=== PATIENT | female | born 1940 | race Caucasian/White ===

== ENCOUNTER → 2017-01-27 | Outpatient (CLI) | payer MEDICARE, BC ==
[2017-01-27 16:38] LABS: Anion Gap 11 mmol/L; Blood Urea Nitrogen 16 mg/dL (7-17); Carbon Dioxide 30 mmol/L (22-30); Chloride 102 mmol/L (98-107); Glucose 98 mg/dL (74-99); Non-African American GFR(MDRD) 53 (>60 ml/min/1.73 sqM); Potassium 4.1 mmol/L (3.5-5.1); Sodium 143 mmol/L (137-145)
== END | disposition home or self-care (01) ==
LOC: LABWHC1 16:11
PROVIDERS: ATTEND Internal Medicine Clinical Cardiac Electrophysiology
DX: I48.91 Unspecified atrial fibrillation (principal)
CPT/HCPCS: 36415; 80048; 84443

== ENCOUNTER 2017-03-03 07:59 | Day surgery (SDC) | payer MEDICARE, BC ==
[~2017-03-03 07:59] MED LIST: ALPRAZolam 0.25 MG TAB PO PRN; ASPIRIN 325 MG TAB PO ONE; SODIUM CHLORIDE 0.9% 1,000 ML in EMPTY BAG 1 BAG IV ONE
[2017-03-03 08:41] LABS: Basophils # (A) 0.1 k/uL (0-0.2); Basophils % (A) 2 %; CH 32.3; CHCM 34.8; Eosinophils # (A) 0.2 k/uL (0-0.7); Eosinophils % (A) 4 %; HDW 2.51; HGB 14.2 gm/dL (11.4-16.0); Luc # (Auto) 0.09; Luc % (Auto) 2; Lymphocytes # (A) 1.4 k/uL (1.0-4.8); Lymphocytes % (A) 27 %; MCH 31.5 pg (25.0-35.0); MCHC 33.8 g/dL (31.0-37.0); MCV 93.1 fL (80.0-100.0); Mean Platelet Volume 7.2; Monocytes # (A) 0.3 k/uL (0-1.0); Monocytes % (A) 6 %; Neutrophils # (A) 2.9 k/uL (1.3-7.7); Neutrophils % (A) 59 %; RBC 4.51 m/uL (3.80-5.40); RDW 13.5 % (11.5-15.5); WBC 4.9 k/uL (3.8-10.6); WBC (Perox) 4.79
[2017-03-03 08:44] VITALS: RESP 18
[2017-03-03 08:47] LABS: INR 1.1 (<1.1); Prothrombin Time 10.8 sec (9.0-12.0)
[2017-03-03 08:52] LABS: Anion Gap 10 mmol/L; Blood Urea Nitrogen 18 mg/dL (7-17); Calcium 9.6 mg/dL (8.4-10.2); Carbon Dioxide 26 mmol/L (22-30); Chloride 106 mmol/L (98-107); Glucose 118 mg/dL (74-99); Non-African American GFR(MDRD) 53 (>60 ml/min/1.73 sqM); Potassium 3.7 mmol/L (3.5-5.1); Sodium 142 mmol/L (137-145)
[2017-03-03] MEDS ORDERED: LIDOCAINE 2% INJ 20 MG/ML (20 ML MDV) ONE (08:54)
[2017-03-03] MEDS ORDERED: MIDAZOLAM 2 MG/2 ML VIAL ONE (09:01)
[2017-03-03] MEDS ORDERED: fentaNYL (PF) 50 MCG/ML 2 ML AMP ONE (09:02)
[2017-03-03] MEDS ORDERED: fentaNYL (PF) 50 MCG/ML 2 ML AMP IV ONE (09:05)
[2017-03-03] MEDS ORDERED: MIDAZOLAM 2 MG/2 ML VIAL IV ONE (09:05)
[2017-03-03] MEDS ORDERED: LIDOCAINE 2% INJ 20 MG/ML SQ ONE (09:08)
[2017-03-03] MEDS ORDERED: IOHEXOL 350 MG/ML 125ML BOTTLE INJ ONE (09:29)
[2017-03-03] MEDS ORDERED: RX INFO: IV CONTRAST WAS GIVEN 1 EACH MISC MISCELLANE PRN (09:51)
--- NOTE | 2017-03-03 09:57 | P.CRDCN ---
History of Present Illness Consult date: 03/03/17 History of present illness: HISTORY: This is a 76-year-old female with history of hypertension, paroxysmal atrial fibrillation and also carotid disease. Patient had a recent stress test that showed evidence of reversible ischemia in the lateral wall. He is advised to have a cardiac catheterization for definitive diagnosis. CONSENT:I have discussed the risks, benefits and alternative therapies for the above-mentioned procedure and for both sedation/analgesia as well as necessary blood product administration, if indicated, as they pertain to this patient. The patient has indicated understanding and acceptance of the risks and procedures discussed. PROCEDURE: Patient was brought to the lab in a fasting state. Patient was given some IV sedation. The right groin is infiltrated with lidocaine and right femoral artery was entered using Seldinger technique. A 6-Micronesian catheter was left in place and selective coronary arteriography was performed. Patient tolerated the procedure well. Femoral angiogram was performed and Angio-Seal was applied for hemostasis. No immediate complications were noted and patient was transferred to [facility] in a stable condition HEMODYNAMICS: Aortic pressure is about 170/80. Left ankle end-diastolic pressure is 10-15. There was no gradient across the aortic valve. SELECTIVE CORONARY ARTERIOGRAPHY: LEFT MAIN: Long and patent and with some calcification THE LEFT ANTERIOR DESCENDING CORONARY ARTERY: Calcification in the proximal portion with mild disease and 30-40% stenosis. The first diagonal also has mild disease. Rest of the LAD is free of significant focal lesions. Multiple mild intimal plaque is present THE LEFT CIRCUMFLEX AND IS CORONARY ARTERY: This is a good caliber vessel giving rise to 2 OM branches. The second OM branch is totally occluded. It fills slowly with ipsilateral collaterals. 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 Calcification and intimal plaque involving the proximal LAD and the diagonal with 30-40% luminal narrowing. No critical lesions are noted PLAN: Maximum medical therapy and to expect modification. PROGNOSIS: Fair Medications and Allergies Home Medications Medication Instructions Recorded Confirmed Type Aspirin [Adult Low Dose Aspirin EC] 81 mg PO DAILY 03/03/17 03/03/17 History Atorvastatin [Lipitor] 40 mg PO DAILY 03/03/17 03/03/17 History Cholecalciferol [Vitamin D3] 1,000 unit PO DAILY 03/03/17 03/03/17 History Hydrochlorothiazide 12.5 mg PO DAILY 03/03/17 03/03/17 History Levothyroxine Sodium [Synthroid] 88 mcg PO DAILY 03/03/17 03/03/17 History Losartan [Cozaar] 50 mg PO HS 03/03/17 03/03/17 History [place]-3 Fatty Acids/Fish Oil [Fish 1 each PO DAILY 03/03/17 03/03/17 History Oil 1,000 mg Softgel] Warfarin Sodium [Coumadin] 2.5 mg PO DAILY 03/03/17 03/03/17 History Allergies Allergy/AdvReac Type Severity Reaction Status Date / Time No Known Allergies Allergy Unverified 03/03/17 08:19 Physical Exam Vitals: Vital Signs Temp Pulse Pulse Resp BP BP Pulse Ox 03/03/17 09:45 97.8 F 53 L 18 169/76 96 03/03/17 08:41 97.6 F 68 18 178/81 199/83 97 Intake and Output 03/02/17 03/03/17 03/03/17 22:59 06:59 14:59 Intake Total 100 Balance 100 Intake: IV 100 Other: Weight 83.024 kg Results 03/03/17 08:30 03/03/17 08:30 Coagulation 03/03/17 Range/Units 08:30 PT 10.8 (9.0-12.0) sec CBC 03/03/17 Range/Units 08:30 WBC 4.9 (3.8-10.6) k/uL RBC 4.51 (3.80-5.40) m/uL Hgb 14.2 (11.4-16.0) gm/dL Hct 42.0 (34.0-46.0) % Plt Count 220 (150-450) k/uL Comprehensive Metabolic Panel 03/03/17 Range/Units 08:30 Sodium 142 (137-145) mmol/L Potassium 3.7 (3.5-5.1) mmol/L Chloride 106 (98-107) mmol/L Carbon Dioxide 26 (22-30) mmol/L BUN 18 H (7-17) mg/dL Creatinine 1.02 (0.52-1.04) mg/dL Glucose 118 H (74-99) mg/dL Calcium 9.6 (8.4-10.2) mg/dL Current Medications Generic Name Dose Route Start Last Admin Trade Name Freq PRN Reason Stop Dose Admin Alprazolam 0.25 mg 03/03/17 06:00 Xanax PO ONCE PRN Mild Anxiety Sodium Chloride 1,000 mls @ 75 mls/hr 03/03/17 10:00 Saline 0.9% IV .[id number] SAV Miscellaneous Information 1 each 03/03/17 09:51 Rx Info: Iv Contrast Was Given MISCELLANE 03/05/17 09:51 DAILY PRN Per Protocol Intake and Output 03/02/17 03/03/17 03/03/17 22:59 06:59 14:59 Intake Total 100 Balance 100 Intake: IV 100 Other: Weight 83.024 kg 03/03/17 08:30 03/03/17 08:30
[2017-03-03] MEDS ORDERED: SODIUM CHLORIDE 0.9% 1,000 ML IV SCH (10:00)
[2017-03-03 11:35] VITALS: TEMP 98
[2017-03-03] MEDS ORDERED: amLODIPine 5 MG TAB PO STA (13:28)
[2017-03-03 15:28] VITALS: BP 170/77; PULSE 52
--- NOTE | 2017-03-08 10:54 | CDI ---
Per your operative report the patient was given some IV sedation and Fentanyl and Versed are noted to be administered at 0905. Per new CMS ([employer] and [employer]) guidelines there is a change by which the work of moderate/conscious sedation will be reimbursed separately. Further clarification of your documentation of some IV sedation is needed for proper reporting purposes. Please clarify the type of sedation this patient received during the cardiac catheterization. Moderate/conscious sedation MAC (unconscious sedation) General Anesthesia Other (please specify) Please document your findings in an addendum to the Procedure Note. If you have any questions about this query, you may contact Telecine Operator, Lanny Vincent at between 8am and 6pm Wednesday-Wednesday Thank you for your time. STEPHANIE Conde
== END 2017-03-03 15:00 | disposition home or self-care (01) ==
LOC: CATHCVL 07:59
PROVIDERS: ATTEND Internal Medicine Cardiovascular Disease
DX: I25.10 Atherosclerotic heart disease of native coronary artery without angina pectoris (principal); I25.84 Coronary atherosclerosis due to calcified coronary lesion; I25.82 Chronic total occlusion of coronary artery; I10 Essential (primary) hypertension; I48.0 Paroxysmal atrial fibrillation; I49.5 Sick sinus syndrome; I47.1 Supraventricular tachycardia; Z79.899 Other long term (current) drug therapy; Z79.82 Long term (current) use of aspirin; Z79.01 Long term (current) use of anticoagulants; Z82.49 Family history of ischemic heart disease and other diseases of the circulatory system
CPT/HCPCS: 93458; 99152; 80048; 85025; 85610; C1760; C1894; C1769; J2001; J2250; J3010; Q9967

== ENCOUNTER 2018-03-15 22:53 | Observation (INO) | payer MEDICARE, BC ==
--- NOTE | 2018-03-15 23:16 | ED ---
General Adult HPI - General Chief complaint: Chest Pain Stated complaint: Chest pain Time Seen by Provider: 03/15/18 22:55 Source: patient, RN notes reviewed, old records reviewed Mode of arrival: wheelchair Limitations: no limitations - History of Present Illness Initial comments: This is a 77-year-old female ER for evaluation. Patient resents ER for evaluation chest pain. Patient does have history of chest pain heart disease. A she has history of high blood pressure high cholesterol - Related Data Home Medications Medication Instructions Recorded Confirmed Aspirin [Adult Low Dose Aspirin EC] 81 mg PO DAILY 03/03/17 03/15/18 Atorvastatin [Lipitor] 40 mg PO DAILY 03/03/17 03/15/18 Cholecalciferol [Vitamin D3] 1,000 unit PO DAILY 03/03/17 03/15/18 Hydrochlorothiazide 12.5 mg PO DAILY 03/03/17 03/15/18 Levothyroxine Sodium [Synthroid] 88 mcg PO DAILY 03/03/17 03/15/18 Losartan [Cozaar] 50 mg PO BID 03/03/17 03/15/18 [place]-3 Fatty Acids/Fish Oil [Fish 1 each PO DAILY 03/03/17 03/15/18 Oil 1,000 mg Softgel] Warfarin Sodium [Coumadin] 5 mg PO MOFR 03/03/17 03/15/18 Warfarin [Coumadin] 3.75 mg PO SUTUWETHSA 03/15/18 03/15/18 Allergies Allergy/AdvReac Type Severity Reaction Status Date / Time No Known Allergies Allergy Verified 03/15/18 23:12 Review of Systems ROS Statement: Those systems with pertinent positive or pertinent negative responses have been documented in the HPI. ROS Other: All systems not noted in ROS Statement are negative. Past Medical History Past Medical History: Hyperlipidemia, Hypertension, Thyroid Disorder History of Any Multi-Drug Resistant Organisms: None Reported Past Surgical History: Orthopedic Surgery Past Psychological History: No Psychological Hx Reported Smoking Status: Never smoker Past Alcohol Use History: None Reported Past Drug Use History: None Reported General Exam Limitations: no limitations General appearance: alert, in no apparent distress Head exam: Present: atraumatic, normocephalic, normal inspection Eye exam: Present: normal appearance, PERRL, EOMI. Absent: scleral icterus, conjunctival injection, periorbital swelling ENT exam: Present: normal exam, mucous membranes moist Neck exam: Present: normal inspection. Absent: tenderness, meningismus, lymphadenopathy Respiratory exam: Present: normal lung sounds bilaterally. Absent: respiratory distress, wheezes, rales, rhonchi, stridor Cardiovascular Exam: Present: regular rate, normal rhythm, normal heart sounds. Absent: systolic murmur, diastolic murmur, rubs, gallop, clicks GI/Abdominal exam: Present: soft, normal bowel sounds. Absent: distended, tenderness, guarding, rebound, rigid Extremities exam: Present: normal inspection, full ROM, normal capillary refill. Absent: tenderness, pedal edema, joint swelling, calf tenderness Back exam: Present: normal inspection Neurological exam: Present: alert, oriented X3, CN II-XII intact Psychiatric exam: Present: normal affect, normal mood Skin exam: Present: warm, dry, intact, normal color. Absent: rash Course Vital Signs 03/15/18 03/15/18 22:55 23:43 Temperature 97.4 F L Pulse Rate 79 74 Respiratory 18 18 Rate Blood Pressure 202/88 165/72 O2 Sat by Pulse 98 98 Oximetry EKG Findings - EKG Comments: EKG Findings:: EKG shows normal sinus rhythm rate of 70, CA 1:30, QRS 76, QTc 697 Medical Decision Making - Lab Data Result diagrams: 03/15/18 23:20 03/15/18 23:20 Lab Results 03/15/18 03/15/18 03/15/18 Range/Units 23:20 23:20 23:20 WBC 7.7 (3.8-10.6) k/uL RBC 4.60 (3.80-5.40) m/uL Hgb 14.1 (11.4-16.0) gm/dL Hct 41.9 (34.0-46.0) % MCV 91.1 (80.0-100.0) fL MCH 30.6 (25.0-35.0) pg MCHC 33.6 (31.0-37.0) g/dL RDW 13.3 (11.5-15.5) % Plt Count 270 (150-450) k/uL Neutrophils % 59 % Lymphocytes % 29 % Monocytes % 7 % Eosinophils % 3 % Basophils % 1 % Neutrophils # 4.5 (1.3-7.7) k/uL Lymphocytes # 2.2 (1.0-4.8) k/uL Monocytes # 0.5 (0-1.0) k/uL Eosinophils # 0.3 (0-0.7) k/uL Basophils # 0.0 (0-0.2) k/uL PT (9.0-12.0) sec INR (<1.2) APTT (22.0-30.0) sec Sodium 143 (137-145) mmol/L Potassium 4.0 (3.5-5.1) mmol/L Chloride 103 (98-107) mmol/L Carbon Dioxide 26 (22-30) mmol/L Anion Gap 14 mmol/L BUN 19 H (7-17) mg/dL Creatinine 1.00 (0.52-1.04) mg/dL Est GFR (CKD-EPI)AfAm 63 (>60 ml/min/1.73 sqM) Est GFR (CKD-EPI)NonAf 55 (>60 ml/min/1.73 sqM) Glucose 110 H (74-99) mg/dL Calcium 9.8 (8.4-10.2) mg/dL Magnesium 2.0 (1.6-2.3) mg/dL Total Bilirubin 0.7 (0.2-1.3) mg/dL AST 23 (14-36) U/L ALT 24 (9-52) U/L Alkaline Phosphatase 89 (38-126) U/L Total Creatine Kinase 53 (30-135) U/L CK-MB (CK-2) 1.3 (0.0-2.4) ng/mL CK-MB (CK-2) Rel Index 2.5 Troponin I <0.012 (0.000-0.034) ng/mL Total Protein 7.2 (6.3-8.2) g/dL Albumin 4.4 (3.5-5.0) g/dL 03/15/18 Range/Units 23:20 WBC (3.8-10.6) k/uL RBC (3.80-5.40) m/uL Hgb (11.4-16.0) gm/dL Hct (34.0-46.0) % MCV (80.0-100.0) fL MCH (25.0-35.0) pg MCHC (31.0-37.0) g/dL RDW (11.5-15.5) % Plt Count (150-450) k/uL Neutrophils % % Lymphocytes % % Monocytes % % Eosinophils % % Basophils % % Neutrophils # (1.3-7.7) k/uL Lymphocytes # (1.0-4.8) k/uL Monocytes # (0-1.0) k/uL Eosinophils # (0-0.7) k/uL Basophils # (0-0.2) k/uL PT 20.5 H (9.0-12.0) sec INR 2.3 H (<1.2) APTT 29.4 (22.0-30.0) sec Sodium (137-145) mmol/L Potassium (3.5-5.1) mmol/L Chloride (98-107) mmol/L Carbon Dioxide (22-30) mmol/L Anion Gap mmol/L BUN (7-17) mg/dL Creatinine (0.52-1.04) mg/dL Est GFR (CKD-EPI)AfAm (>60 ml/min/1.73 sqM) Est GFR (CKD-EPI)NonAf (>60 ml/min/1.73 sqM) Glucose (74-99) mg/dL Calcium (8.4-10.2) mg/dL Magnesium (1.6-2.3) mg/dL Total Bilirubin (0.2-1.3) mg/dL AST (14-36) U/L ALT (9-52) U/L Alkaline Phosphatase (38-126) U/L Total Creatine Kinase (30-135) U/L CK-MB (CK-2) (0.0-2.4) ng/mL CK-MB (CK-2) Rel Index Troponin I (0.000-0.034) ng/mL Total Protein (6.3-8.2) g/dL Albumin (3.5-5.0) g/dL Disposition Clinical Impression: Chest pain Disposition: ADMITTED IP TO THIS HOSP Condition: Undetermined Instructions: Chest Pain (ED) Is patient prescribed a controlled substance at d/c from ED?: No Referrals: Hany Garrett DO [Primary Care Provider] - 1-2 days
[2018-03-15 23:36] LABS: Basophils % (A) 1 %; Eosinophils # (A) 0.3 k/uL (0-0.7); Eosinophils % (A) 3 %; HCT 41.9 % (34.0-46.0); HGB 14.1 gm/dL (11.4-16.0); Lymphocytes # (A) 2.2 k/uL (1.0-4.8); Lymphocytes % (A) 29 %; MCH 30.6 pg (25.0-35.0); MCHC 33.6 g/dL (31.0-37.0); MCV 91.1 fL (80.0-100.0); Mean Platelet Volume 7.2; Monocytes # (A) 0.5 k/uL (0-1.0); Monocytes % (A) 7 %; Neutrophils # (A) 4.5 k/uL (1.3-7.7); Neutrophils % (A) 59 %; Platelet Count 270 k/uL (150-450); RDW 13.3 % (11.5-15.5); WBC 7.7 k/uL (3.8-10.6)
[2018-03-15 23:46] LABS: Albumin 4.4 g/dL (3.5-5.0); Calcium 9.8 mg/dL (8.4-10.2); Total Bilirubin 0.7 mg/dL (0.2-1.3); Total Protein 7.2 g/dL (6.3-8.2)
[2018-03-15 23:49] LABS: Creatine Kinase 53 U/L (30-135)
[2018-03-15 23:55] LABS: INR 2.3 (<1.2); Partial Thromboplastin Time 29.4 sec (22.0-30.0); Prothrombin Time 20.5 sec (9.0-12.0)
[2018-03-16 00:02] LABS: Creatine Kinase MB 1.3 ng/mL (0.0-2.4); Troponin I <0.012 ng/mL (0.000-0.034)
--- NOTE | 2018-03-16 00:14 | XR ---
EXAMINATION TYPE: XR chest 2V DATE OF EXAM: 03/15/2018 COMPARISON: NONE HISTORY: Chest pain TECHNIQUE: Frontal and lateral views of the chest are obtained. FINDINGS: Heart and mediastinum are normal. Lungs are clear. Diaphragm is normal. Bony thorax is int act. There is no pleural effusion. There are chest leads. IMPRESSION: Normal chest
[2018-03-16] MEDS ORDERED: ASPIRIN 81 MG PO STA (00:15)
[2018-03-16] MEDS ORDERED: NITROGLYCERIN SL TABS 0.4 MG TAB SUBLINGUAL PRN (00:15)
[2018-03-16 06:11] LABS: Creatine Kinase 60 U/L (30-135)
[2018-03-16 06:24] LABS: Troponin I <0.012 ng/mL (0.000-0.034)
[2018-03-16] MEDS ORDERED: ACETAMINOPHEN TAB 325 MG TAB PO PRN (06:50)
[2018-03-16] MEDS ORDERED: NALOXONE 0.4 MG/ML 1 ML VIAL IV PRN (06:50)
--- NOTE | 2018-03-16 06:56 | P.HPIM ---
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 Review of systems and systems has been reviewed all negative and positive findings as per HPI Past Medical History: Hyperlipidemia, Hypertension, Thyroid Disorder History of Any Multi-Drug Resistant Organisms: None Reported Past Surgical History: Orthopedic Surgery Past Psychological History: No Psychological Hx Reported Smoking Status: Never smoker Past Alcohol Use History: None Reported Past Drug Use History: None Reported Laboratory Results - last 24 hr 03/15/18 03/15/18 03/15/18 23:20 23:20 23:20 WBC 7.7 RBC 4.60 Hgb 14.1 Hct 41.9 MCV 91.1 MCH 30.6 MCHC 33.6 RDW 13.3 Plt Count 270 Neutrophils % 59 Lymphocytes % 29 Monocytes % 7 Eosinophils % 3 Basophils % 1 Neutrophils # 4.5 Lymphocytes # 2.2 Monocytes # 0.5 Eosinophils # 0.3 Basophils # 0.0 PT INR APTT Sodium 143 Potassium 4.0 Chloride 103 Carbon Dioxide 26 Anion Gap 14 BUN 19 H Creatinine 1.00 Est GFR (CKD-EPI)AfAm 63 Est GFR (CKD-EPI)NonAf 55 Glucose 110 H Calcium 9.8 Magnesium 2.0 Total Bilirubin 0.7 AST 23 ALT 24 Alkaline Phosphatase 89 Total Creatine Kinase 53 CK-MB (CK-2) 1.3 CK-MB (CK-2) Rel Index 2.5 Troponin I <0.012 Total Protein 7.2 Albumin 4.4 03/15/18 03/16/18 23:20 05:27 WBC RBC Hgb Hct MCV MCH MCHC RDW Plt Count Neutrophils % Lymphocytes % Monocytes % Eosinophils % Basophils % Neutrophils # Lymphocytes # Monocytes # Eosinophils # Basophils # PT 20.5 H INR 2.3 H APTT 29.4 Sodium Potassium Chloride Carbon Dioxide Anion Gap BUN Creatinine Est GFR (CKD-EPI)AfAm Est GFR (CKD-EPI)NonAf Glucose Calcium Magnesium Total Bilirubin AST ALT Alkaline Phosphatase Total Creatine Kinase 60 CK-MB (CK-2) 1.0 CK-MB (CK-2) Rel Index 1.7 Troponin I <0.012 Total Protein Albumin Vital Signs - 24 hr 03/15/18 03/15/18 03/16/18 22:55 23:43 00:29 Temperature 97.4 F L 97 F L Pulse Rate 79 74 69 Pulse Rate [ Pulse Oximetery ] Respiratory 18 18 16 Rate Blood Pressure 202/88 165/72 139/78 Blood Pressure [Right Arm] O2 Sat by Pulse 98 98 98 Oximetry 03/16/18 03/16/18 03/16/18 00:39 01:05 03:38 Temperature 97.6 F 97.6 F Pulse Rate Pulse Rate [ 58 L 64 Pulse Oximetery ] Respiratory 18 16 Rate Blood Pressure Blood Pressure 226/96 174/72 137/72 [Right Arm] O2 Sat by Pulse 98 96 Oximetry Constitutional: No acute distress, conversant, pleasant Eyes: Anicteric sclerae, moist conjunctiva, no lid-lag PERRLA ENMT: NC/AT Oropharynx clear, no erythema, exudates Neck: Supple, FROM, no masses, or JVD No carotid bruits No thyromegaly Lungs: Clear to auscultation Clear to percussion Normal respiratory effort, no accessory muscle use Cardiovascular: Heart regular in rate and rhythm, No murmurs, gallops, or rubs No peripheral edema Abdominal: Soft Nontender, no guarding, rebound or rigidity Abdomen moving with respiration Normoactive bowel sounds No hepatomegaly, No splenomegaly No palpable mass No abdominal wall hernia noted Skin: Normal temperature, tone, texture, turgor No induration No subcutaneous nodules No rash, lesions No ulcers Extremities: No digital cyanosis No clubbing Pedal pulses intact and symmetrical Radial pulses intact and symmetrical Normal gait and station No calf tenderness Psychiatric:Alert and oriented to person, place and time Appropriate affect Intact judgement Neuro: No obvious deficits Assessment and plan chest pain with typical and atypical features that resolved cardiac enzymes: Negative cardiology has been consulted Atrial fibrillation rate controlled a shunt is on Coumadin INR is therapeutic Will observe the patient overnight No evidence clinically of PE and the patient has therapeutic INR Past Medical History Past Medical History: Atrial Fibrillation, Hyperlipidemia, Hypertension, Thyroid Disorder Additional Past Medical History / Comment(s): carotid endarectomy History of Any Multi-Drug Resistant Organisms: None Reported Past Surgical History: Orthopedic Surgery Additional Past Surgical History / Comment(s): albert in wrist Past Anesthesia/Blood Transfusion Reactions: No Reported Reaction Past Psychological History: No Psychological Hx Reported Smoking Status: Never smoker Past Alcohol Use History: None Reported Past Drug Use History: None Reported - Past Family History Father Family Medical History: Myocardial Infarction ([place]) Additional Family Medical History / Comment(s): about 50yrs of age Brother(s) Family Medical History: Myocardial Infarction ([place]) Mother Family Medical History: AICD/Pacemaker, Cancer Additional Family Medical History / Comment(s): heart disease Medications and Allergies Home Medications Medication Instructions Recorded Confirmed Type Aspirin [Adult Low Dose Aspirin EC] 81 mg PO DAILY 03/03/17 03/15/18 History Atorvastatin [Lipitor] 40 mg PO DAILY 03/03/17 03/15/18 History Cholecalciferol [Vitamin D3] 1,000 unit PO DAILY 03/03/17 03/15/18 History Hydrochlorothiazide 12.5 mg PO DAILY 03/03/17 03/15/18 History Levothyroxine Sodium [Synthroid] 88 mcg PO DAILY 03/03/17 03/15/18 History Losartan [Cozaar] 50 mg PO BID 03/03/17 03/15/18 History [place]-3 Fatty Acids/Fish Oil [Fish 1 each PO DAILY 03/03/17 03/15/18 History Oil 1,000 mg Softgel] Warfarin Sodium [Coumadin] 5 mg PO MOFR 03/03/17 03/15/18 History Warfarin [Coumadin] 3.75 mg PO SUTUWETHSA 03/15/18 03/15/18 History Allergies Allergy/AdvReac Type Severity Reaction Status Date / Time No Known Allergies Allergy Verified 03/15/18 23:12 Physical Exam Vitals: Vital Signs Temp Pulse Pulse Resp BP BP Pulse Ox 03/16/18 03:38 97.6 F 64 16 137/72 96 03/16/18 01:05 174/72 03/16/18 00:39 97.6 F 58 L 18 226/96 98 03/16/18 00:29 97 F L 69 16 139/78 98 03/15/18 23:43 74 18 165/72 98 03/15/18 22:55 97.4 F L 79 18 202/88 98 Intake and Output 03/15/18 03/15/18 03/16/18 14:59 22:59 06:59 Intake Total 0 Balance 0 Intake: Oral 0 Other: Weight 81.647 kg 86.5 kg Results CBC & Chem 7: 03/15/18 23:20 03/15/18 23:20 Labs: Abnormal Lab Results - Last 24 Hours (Table) 03/15/18 03/15/18 Range/Units 23:20 23:20 PT 20.5 H (9.0-12.0) sec INR 2.3 H (<1.2) BUN 19 H (7-17) mg/dL Glucose 110 H (74-99) mg/dL Thrombosis Risk Factor Assmnt - Choose All That Apply Any of the Below Risk Factors Present?: Yes Each Factor Represents 1 point: Obesity (BMI >25) Other Risk Factors: Yes Each Risk Factor Represents 3 Points: Age 75 years or older Thrombosis Risk Factor Assessment Total Risk Factor Score: 4 Thrombosis Risk Factor Assessment Level: Moderate Risk
[2018-03-16] MEDS: LEVOTHYROXINE 88 MCG TAB PO SCH (07:34)
[2018-03-16] MEDS ORDERED: HYDROCHLOROTHIAZIDE 12.5 MG CAP PO SCH (09:00)
[2018-03-16] MEDS ORDERED: METOPROLOL TARTRATE 25 MG TAB PO SCH (09:00)
--- NOTE | 2018-03-16 10:06 | P.CRDCN ---
History of Present Illness Consult date: 03/16/18 History of present illness: Mrs. Villalba is a pleasant 77-year-old female past medical history significant for paroxysmal atrial fibrillation, hypertension, coronary artery disease with totally occluded OM branch from the left circumflex and mild disease involving the proximal LAD and diagonal, dyslipidemia, carotid artery disease status post endarterectomy and hypothyroidism. She follows with Dr. Huerta in the office. We've been asked to see her in consultation for chest pain. She states for the last 2 days she has been experiencing pain in the left precordial region. The pain is sharp in nature with no specific alleviating or aggravating factors. The pain has been mostly constant with mild nausea and has remained localized with no radiation to arm, back, neck or jaw. She denies associated shortness of breath, palpitations, vomiting, palpitations, diaphoresis or dizziness. When she arrived in the ED her blood pressure was 202/ 88 with heart rate 79. She has received none of her home medications since admission. She saw Dr. Huerta in the office in November and was complaining of dizziness and her blood pressure was elevated. At that time her losartan was increased to BID. Her pain has subsided since admission, she is currently chest pain free. EKG reveals sinus mechanism with non-specific T-wave abnormalities. Chest xray negative for an acute cardiopulmonary process. Laboratory data reviewed, hemoglobin 14.1, platelets 270, INR 2.3, sodium 143, potassium 4.0, magnesium 2.0, creatinine 1.0, cardiac enzymes negative 2. Current cardiac medications include Coumadin, losartan 50 mg twice a day, hydrochlorothiazide 12.5 mg daily, atorvastatin 40 mg daily and aspirin 81 mg daily. She has been intolerant to beta blockers in the past and has maintained controlled ventricular response with atrial fibrillation without medication. Most recent cardiac catheterization was performed 03/2017 which revealed diffuse calcifications with total occlusion of OM branch of circumflex artery and 30-40 % stenosis of proximal LAD. Review of Systems At the time of my exam: CONSTITUTIONAL: Denies fever. Denies chills. EYES: Denies blurred vision. Denies vision changes. Denies eye pain. EARS, NOSE, MOUTH & THROAT: Denies headache. Denies sore throat. Denies ear pain. CARDIOVASCULAR: Denies chest pain. Denies shortness of breath. Denies orthopnea. Denies PND. Denies palpitations. RESPIRATORY: Denies cough. GASTROINTESTINAL: Denies abdominal pain. Denies diarrhea. Denies constipation. Denies nausea. Denies vomiting. MUSCULOSKELETAL: Denies myalgias. INTEGUMENTARY: Denies pruitis. Denies rash. NEUROLOGIC: Denies numbness. Denies tingling. Denies weakness. PSYCHIATRIC: Denies anxiety. Denies depression. ENDOCRINE: Denies fatigue. Denies weight change. Denies polydipsia. Denies polyurina. GENITOURINARY: Denies burning, hematuria or urgency with micturation. HEMATOLOGIC: Denies history of anemia. Denies bleeding. Past Medical History Past Medical History: Atrial Fibrillation, Hyperlipidemia, Hypertension, Thyroid Disorder Additional Past Medical History / Comment(s): carotid endarectomy History of Any Multi-Drug Resistant Organisms: None Reported Past Surgical History: Orthopedic Surgery Additional Past Surgical History / Comment(s): albert in wrist Past Anesthesia/Blood Transfusion Reactions: No Reported Reaction Past Psychological History: No Psychological Hx Reported Smoking Status: Never smoker Past Alcohol Use History: None Reported Past Drug Use History: None Reported - Past Family History Father Family Medical History: Myocardial Infarction ([place]) Additional Family Medical History / Comment(s): about 50yrs of age Brother(s) Family Medical History: Myocardial Infarction ([place]) Mother Family Medical History: AICD/Pacemaker, Cancer Additional Family Medical History / Comment(s): heart disease Medications and Allergies Home Medications Medication Instructions Recorded Confirmed Type Aspirin [Adult Low Dose Aspirin EC] 81 mg PO DAILY 03/03/17 03/15/18 History Atorvastatin [Lipitor] 40 mg PO DAILY 03/03/17 03/15/18 History Cholecalciferol [Vitamin D3] 1,000 unit PO DAILY 03/03/17 03/15/18 History Hydrochlorothiazide 12.5 mg PO DAILY 03/03/17 03/15/18 History Levothyroxine Sodium [Synthroid] 88 mcg PO DAILY 03/03/17 03/15/18 History Losartan [Cozaar] 50 mg PO BID 03/03/17 03/15/18 History [place]-3 Fatty Acids/Fish Oil [Fish 1 each PO DAILY 03/03/17 03/15/18 History Oil 1,000 mg Softgel] Warfarin Sodium [Coumadin] 5 mg PO MOFR 03/03/17 03/15/18 History Warfarin [Coumadin] 3.75 mg PO SUTUWETHSA 03/15/18 03/15/18 History Allergies Allergy/AdvReac Type Severity Reaction Status Date / Time No Known Allergies Allergy Verified 03/15/18 23:12 Physical Exam Vitals: Vital Signs Temp Pulse Pulse Resp BP BP Pulse Ox 03/16/18 03:38 97.6 F 64 16 137/72 96 03/16/18 01:05 174/72 03/16/18 00:39 97.6 F 58 L 18 226/96 98 03/16/18 00:29 97 F L 69 16 139/78 98 03/15/18 23:43 74 18 165/72 98 03/15/18 22:55 97.4 F L 79 18 202/88 98 Intake and Output 03/15/18 03/16/18 03/16/18 22:59 06:59 14:59 Intake Total 0 Balance 0 Intake: Oral 0 Other: Weight 81.647 kg 86.5 kg Blood pressure 139/76 heart rate 66 afebrile maintaining oxygen saturation on room air GENERAL: This is a 77-year-old female in no apparent distress at the time of my examination. HEENT: Head is atraumatic, normocephalic. Pupils are equal, round. Sclerae anicteric. Conjunctivae are clear. Mucous membranes of the mouth are moist. Neck is supple. There is no jugular venous distention. No carotid bruit is heard. LUNGS: Clear to auscultation no wheezes, rales or rhonchi. No chest wall tenderness is noted on palpation or with deep breathing. HEART: Regular rate and rhythm without murmurs, rubs or gallops. S1 and S2 heard. ABDOMEN: Soft, nontender. Bowel sounds are heard. No organomegaly noted. EXTREMITIES: No evidence of peripheral edema and no calf tenderness noted. VASCULAR: Radial and dorsalis pedis pulses palpated, no evidence of clubbing. NEUROLOGIC: Patient is awake, alert and oriented x3. Results 03/15/18 23:20 03/15/18 23:20 Cardiac Enzymes 03/15/18 03/15/18 03/16/18 Range/Units 23:20 23:20 05:27 AST 23 (14-36) U/L CK-MB (CK-2) 1.3 1.0 (0.0-2.4) ng/mL Troponin I <0.012 <0.012 (0.000-0.034) ng/mL Coagulation 03/15/18 Range/Units 23:20 PT 20.5 H (9.0-12.0) sec APTT 29.4 (22.0-30.0) sec CBC 03/15/18 Range/Units 23:20 WBC 7.7 (3.8-10.6) k/uL RBC 4.60 (3.80-5.40) m/uL Hgb 14.1 (11.4-16.0) gm/dL Hct 41.9 (34.0-46.0) % Plt Count 270 (150-450) k/uL Comprehensive Metabolic Panel 03/15/18 Range/Units 23:20 Sodium 143 (137-145) mmol/L Potassium 4.0 (3.5-5.1) mmol/L Chloride 103 (98-107) mmol/L Carbon Dioxide 26 (22-30) mmol/L BUN 19 H (7-17) mg/dL Creatinine 1.00 (0.52-1.04) mg/dL Glucose 110 H (74-99) mg/dL Calcium 9.8 (8.4-10.2) mg/dL AST 23 (14-36) U/L ALT 24 (9-52) U/L Alkaline Phosphatase 89 (38-126) U/L Total Protein 7.2 (6.3-8.2) g/dL Albumin 4.4 (3.5-5.0) g/dL Current Medications Generic Name Dose Route Start Last Admin Trade Name Freq PRN Reason Stop Dose Admin Acetaminophen 650 mg 03/16/18 06:50 Tylenol Tab PO Q6HR PRN Mild Pain or Fever > 100.5 Aspirin 81 mg 03/16/18 09:00 Aspirin PO DAILY [facility] Atorvastatin Calcium 40 mg 03/16/18 09:00 Lipitor PO DAILY [facility] Hydrochlorothiazide 12.5 mg 03/16/18 09:00 Hydrodiuril PO DAILY [facility] Levothyroxine Sodium 88 mcg 03/16/18 06:59 03/16/18 07:34 Synthroid PO 88 mcg 0630 [facility] Administration Losartan Potassium 50 mg 03/16/18 09:00 Cozaar PO BID [facility] Naloxone HCl 0.2 mg 03/16/18 06:50 Narcan IV Q2M PRN Opioid Reversal Nitroglycerin 0.4 mg 03/16/18 00:15 Nitrostat SUBLINGUAL Q5M PRN Chest Pain Warfarin Sodium 3.75 mg 03/16/18 18:00 Coumadin PO [id number]@1800 [facility] Warfarin Sodium 5 mg 03/18/18 18:00 Coumadin PO [id number]@1800 [facility] Intake and Output 03/15/18 03/16/18 03/16/18 22:59 06:59 14:59 Intake Total 0 Balance 0 Intake: Oral 0 Other: Weight 81.647 kg 86.5 kg 03/15/18 23:20 03/15/18 23:20 Assessment and Plan Assessment: ASSESSMENT 1. Hypertensive emergency 2. Chest pain, atypical. An acute coronary event has been ruled out. 3. History of coronary artery disease, recent catheterization last year with evidence of mild disease of LAD and chronic total occlusion of OM 4. Dyslipidemia 5. Paroxysmal atrial fibrillation on long-term anticoagulation, intolerant to beta blockers secondary to sick sinus syndrome PLAN Add amlodipine 5 mg daily. Increase hydrochlorothiazide to 25 mg daily. Continue with aspirin 81 mg, atorvastatin 40 mg, losartan 50 mg BID and coumadin. Obtain 2D echocardiogram and doppler study to assess cardiac structure and function. Ongoing blood pressure monitoring. Further recommendations to follow. Thank you kindly for this consultation. Nurse Practitioner note has been reviewed, I agree with a documented findings and plan of care. Patient was seen and examined.
[2018-03-16] MEDS: LOSARTAN 50 MG TAB PO SCH ×2 (10:57→20:40)
[2018-03-16] MEDS: ATORVASTATIN 40 MG TAB PO SCH (10:57)
[2018-03-16] MEDS: amLODIPine 5 MG TAB PO SCH (10:57)
[2018-03-16] MEDS: ASPIRIN 81 MG PO SCH (10:57)
[2018-03-16] MEDS: HYDROCHLOROTHIAZIDE 25 MG TAB PO SCH (10:57)
--- NOTE | 2018-03-16 11:20 | ECHOF ---
Referral Reason: MEASUREMENTS -------- HEIGHT: 157.5 cm WEIGHT: 86.2 kg BP: 139/76 IVSd: 1.6 cm (0.6 - 1.1) LVIDd: 4.1 cm (3.9 - 5.3) LVPWd: 1.5 cm (0.6 - 1.1) IVSs: 1.8 cm LVIDs: 1.5 cm LVPWs: 1.9 cm LAESV Index (A-L): 39.27 ml/m Ao Diam: 3.1 cm (2.0 - 3.7) AV Cusp: 1.6 cm (1.5 - 2.6) LA Diam: 4.2 cm (2.7 - 3.8) MV EXCURSION: 13.189 mm (> 18.000) MV EF SLOPE: 58 mm/s (70 - 150) EPSS: 0.6 cm MV E Fred: 0.61 m/s MV DecT: 290 ms MV A Fred: 0.78 m/s MV E/A Ratio: 0.78 RAP: 5.00 mmHg RVSP: 16.08 mmHg FINDINGS -------- Sinus rhythm. This was a technically good study. The left ventricular size is normal. There is moderate concentric left ventricular hypertrophy. O verall left ventricular systolic function is normal with, an EF between 55 - 60 %. The right ventricle is normal in size and function. LA is moderately dilated 34-39 ml/m2 The right atrium is normal in size. The aortic valve is trileaflet, and appears structurally normal. No aortic stenosis or regurgitation. There is trace mitral regurgitation. Trace tricuspid regurgitation present. The right ventricular systolic pressure, as measured by Dopp ler, is 16.08mmHg. Pulmonic valve appears structurally normal. The aortic root size is normal. Normal inferior vena cava with normal inspiratory collapse consistent with estimated right atrial pre ssure of 5 mmHg. The pericardium is normal. CONCLUSIONS -------- 1. Sinus rhythm. 2. This was a technically good study. 3. The left ventricular size is normal. 4. There is moderate concentric left ventricular hypertrophy. 5. Overall left ventricular systolic function is normal with, an EF between 55 - 60 %. 6. The right ventricle is normal in size and function. 7. LA is moderately dilated 34-39 ml/m2 8. The right atrium is normal in size. 9. The aortic valve is trileaflet, and appears structurally normal. No aortic stenosis or regurgitati on. 10. There is trace mitral regurgitation. 11. Trace tricuspid regurgitation present. 12. The right ventricular systolic pressure, as measured by Doppler, is 16.08mmHg. 13. Pulmonic valve appears structurally normal. 14. The aortic root size is normal. 15. Normal inferior vena cava with normal inspiratory collapse consistent with estimated right atrial pressure of 5 mmHg. 16. The pericardium is normal. RN HEART: Michelle Cortez RDCS
[2018-03-16 11:53] LABS: Creatine Kinase 68 U/L (30-135)
[2018-03-16 12:06] LABS: Creatine Kinase MB 1.1 ng/mL (0.0-2.4); Troponin I <0.012 ng/mL (0.000-0.034)
--- NOTE | 2018-03-16 17:15 | P.PN ---
Progress Note - Text Progress Note Date: 03/16/18 patient doing well, cardiology ruled out ACS, monitoring overnight with blood pressure medications adjustment
[2018-03-16] MEDS ORDERED: WARFARIN 2.5 MG TAB PO SCH (18:00)
[2018-03-17 03:42] VITALS: RESP 16
[2018-03-17] MEDS: LEVOTHYROXINE 88 MCG TAB PO SCH (06:45)
[2018-03-17 06:56] LABS: INR 2.1 (<1.2); Prothrombin Time 19.4 sec (9.0-12.0)
[2018-03-17 06:57] LABS: Cholesterol 150 mg/dL (<200); HDL Cholesterol 46 mg/dL (40-60); LDL Cholesterol,Calculated 79 mg/dL (0-99); Triglycerides 127 mg/dL (<150)
[2018-03-17] MEDS ORDERED: DOBUTamine DRIP for NUC MED 250 MG in DEXTROSE/WATER 1 250ML.BAG IV ONE (08:23)
[2018-03-17] MEDS ORDERED: ASPIRIN 325 MG TAB PO SCH (09:00)
[2018-03-17] MEDS: HYDROCHLOROTHIAZIDE 25 MG TAB PO SCH (12:12)
[2018-03-17] MEDS: ASPIRIN 81 MG PO SCH (12:12)
[2018-03-17] MEDS: amLODIPine 5 MG TAB PO SCH (12:12)
[2018-03-17] MEDS: LOSARTAN 50 MG TAB PO SCH (12:12)
[2018-03-17] MEDS: ATORVASTATIN 40 MG TAB PO SCH (12:12)
--- NOTE | 2018-03-17 12:31 | P.PN ---
Subjective Progress Note Date: 03/17/18 Mrs. Villalba is a pleasant 77-year-old female past medical history significant for paroxysmal atrial fibrillation, hypertension, coronary artery disease with totally occluded OM branch from the left circumflex and mild disease involving the proximal LAD and diagonal, dyslipidemia, carotid artery disease status post endarterectomy and hypothyroidism. She follows with Dr. Huerta in the office. We've been asked to see her in consultation for chest pain. She states for the last 2 days she has been experiencing pain in the left precordial region. The pain is sharp in nature with no specific alleviating or aggravating factors. The pain has been mostly constant with mild nausea and has remained localized with no radiation to arm, back, neck or jaw. She denies associated shortness of breath, palpitations, vomiting, palpitations, diaphoresis or dizziness. When she arrived in the ED her blood pressure was 202/ 88 with heart rate 79. She has received none of her home medications since admission. She saw Dr. Huerta in the office in November and was complaining of dizziness and her blood pressure was elevated. At that time her losartan was increased to BID. Her pain has subsided since admission, she is currently chest pain free. EKG reveals sinus mechanism with non-specific T-wave abnormalities. Chest xray negative for an acute cardiopulmonary process. Laboratory data reviewed, hemoglobin 14.1, platelets 270, INR 2.3, sodium 143, potassium 4.0, magnesium 2.0, creatinine 1.0, cardiac enzymes negative 2. Current cardiac medications include Coumadin, losartan 50 mg twice a day, hydrochlorothiazide 12.5 mg daily, atorvastatin 40 mg daily and aspirin 81 mg daily. She has been intolerant to beta blockers in the past and has maintained controlled ventricular response with atrial fibrillation without medication. Most recent cardiac catheterization was performed 03/2017 which revealed diffuse calcifications with total occlusion of OM branch of circumflex artery and 30-40 % stenosis of proximal LAD. 03/17/2018 Mrs. Villalba is seen and examined today sitting up in the chair with family at the bedside. Blood pressure medications have been added and adjusted yesterday. Blood pressures have been much better. 136/67 heart rate 62 this morning. She continues to c/o of intermittent sharp chest pain. The pain she describes is atypical with no associated symptoms and no radiation of the pain. LDL 79, HDL 46. Echocardiogram performed yesterday revealed preserved left ventricular systolic function with ejection fraction 55-60%, moderate concentric left ventricular hypertrophy and moderately dilated left atrium. Objective - Vital Signs Vital signs: Vital Signs Temp 97.7 F 03/17/18 07:41 Pulse 62 03/17/18 07:41 Resp 16 03/17/18 07:41 BP 136/64 03/17/18 07:41 Pulse Ox 96 03/17/18 07:41 Intake & Output 03/16/18 03/17/18 03/17/18 18:59 06:59 18:59 Intake Total 800 236 Balance 800 236 Intake: Oral 800 236 Other: Voiding Method Toilet Toilet - Exam GENERAL: Well-appearing, well-nourished and in no acute distress. NECK: Supple without JVD or thyromegaly. LUNGS: Breath sounds clear to auscultation bilaterally. Respiration equal and unlabored. No wheezes, rales or rhonchi. HEART: Regular rate and rhythm without murmurs, rubs or gallops. S1 and S2 heard. EXTREMITIES: Normal range of motion, no edema. No clubbing or cyanosis. Peripheral pulses intact and strong. - Labs CBC & Chem 7: 03/15/18 23:20 03/15/18 23:20 Labs: Abnormal Lab Results - Last 24 Hours (Table) 03/17/18 Range/Units 06:30 PT 19.4 H (9.0-12.0) sec INR 2.1 H (<1.2) Assessment and Plan Assessment: ASSESSMENT 1. Hypertensive emergency 2. Chest pain, atypical. An acute coronary event has been ruled out. 3. History of coronary artery disease, recent catheterization last year with evidence of mild disease of LAD and chronic total occlusion of OM 4. Dyslipidemia 5. Paroxysmal atrial fibrillation on long-term anticoagulation, intolerant to beta blockers secondary to sick sinus syndrome PLAN Continue with amlodipine 5 mg daily, hydrochlorothiazide 25 mg daily, losartan 50 mg BID, aspirin 81 mg daily and coumadin. Perform dobutamine stress echocardiogram to assess for stress induced cardiac ischemia. If this is negative she is stable for discharge home to follow up with Dr. Huerta in 2 weeks. Nurse Practitioner note has been reviewed, I agree with a documented findings and plan of care. Patient was seen and examined.
--- NOTE | 2018-03-17 12:35 | ECHOS ---
STRESS ECHOCARDIOGRAM INDICATIONS: Chest pain. BASELINE HEART RATE: 73 BASELINE BLOOD PRESSURE: 108/70 MAXIMUM HEART RATE: 124 MAXIMUM BLOOD PRESSURE: 199/38 85% MPHR: 122 100% MPHR: 143 MAXIMUM STAGE REACHED: II TOTAL EXERCISE TIME: 7:58 CLINICAL INFORMATION: STRESS DATA: Pretesting physical examination showed heart rate of 73, pressure is 108/70 mmHg. Baseline EKG showed sinus mechanism. Dobutamine infusion at the dose of 10 mcg/kg per minute was initiated and increased to 30 mcg/kg per minute per protocol. Max heart rate was achieved with dobutamine is 124, which is about 86% of maximum predicted heart rate. Maximum blood pressure was 199/38 mm Hg. Clinically, the patient did not have any symptoms of chest pain or discomfort during the testing or on recovery. The EKG did reveal about 0.5 mm to [address]-segment changes. ECHOCARDIOGRAM IMAGES: On echocardiogram images from parasternal long axis view, parasternal short axis view, apical 4 chambers and apical 2 chamber view were obtained as the baseline images, at the peak of the heart rate as well as on recovery. The echocardiogram images did not show any evidence of wall motion abnormalities concerning for ischemia. CONCLUSION: 1. Mild EKG changes in response to dobutamine with [address]-segment depression during dobutamine infusion at [address]-segment depression on recovery. 2. Normal echocardiogram in response to dobutamine. 3. Essentially the stress is not convincing for ischemia. MMODL / IJN: [id number] /
[2018-03-17 12:40] VITALS: BP 141/70; PULSE 70; TEMP 97.6
--- NOTE | 2018-03-17 13:05 | P.DS ---
Providers Date of admission: 03/16/18 00:15 Attending physician: Neli Fried MD Consults: 03/16/18 00:15 Consult Physician Urgent Consulting Provider: Liz Toney Consult Reason/Comments: cp Do you want consulting provider notified?: Yes Primary care physician: Hany Garrett [facility] Course: Final diagnoses at discharge Malignant hypertension (was associated with chest pain) Musculoskeletal chest pain Secondary diagnoses Paroxysmal A. fib currently rate controlled on anticoagulation History of CAD currently on medical therapy Hypothyroidism 77-year-old female with history of CAD and paroxysmal A. fib. She had a recent cath done last year showing chronic occlusion of OM branch of the left circumflex and mild disease involving the proximal LAD. Patient presented to the hospital due to left-sided chest pain sharp in nature not associated with activity. Patient was admitted to rule out ACS. This was associated with uncontrolled blood pressure upon presentation her systolic blood pressure was 202. chest x-ray was negative for any cardiopulmonary process. EKG showed nonspecific T-wave changes. Troponins were negative.Her blood pressure medications were adjusted during this hospital stay to control her blood pressure, She was evaluated by cardiology who performed a stress test which was not showing any convincing evidence of ischemia. Cardiology cleared the patient for discharge and follow up outpatient with Dr. Barragan. Patient was seen and examined on day of discharge, she denies any further chest pain or trouble breathing. She is eager to go home. Denies any fevers or chills. Constitutional: vital signs stable, Not in acute distress, pleasant, conversant Lungs: Clear to auscultation bilaterally, clear to percussion, normal respiratory effort Cardiovascular: Regular rate and rhythm, no murmurs, no gallops, no rubs, no peripheral edema Gastrointestinal: Soft, no tenderness to palpation, no palpable hepatosplenomegally, bowel sounds positive Extremities: No digital cyanosis or clubbing, peripheral pulses palpable and equal over bilateral radial arteries and dorsalis pedis artery, no calf muscle tenderness Psych: Alert, oriented to place, person and time, appropriate affect, intact judgment patient will be discharged home in stable clinical condition, follow-up with cardiology and PCP Prescriptions for the changes on her blood pressure medications were sent to her pharmacy patient was advised to return to the hospital if she experienced worsening symptoms. 30 minutes were spent discharging this patient, and more than 50% of the time was spent in counseling the patient and family and in coordinating care. Pertinent Studies: Stress test, no clear evidence of ischemia 2-D echocardiogram, preserved left ventricular ejection fraction Patient Condition at Discharge: Stable Plan - Discharge Summary New Discharge Prescriptions: New amLODIPine [Norvasc] 5 mg PO DAILY #60 tab Hydrochlorothiazide [Hydrodiuril] 25 mg PO DAILY #30 tab Nitroglycerin Sl Tabs [Nitrostat] 0.4 mg SUBLINGUAL Q5M PRN #100 tab PRN Reason: Chest Pain Continue Cholecalciferol [Vitamin D3] 1,000 unit PO DAILY Losartan [Cozaar] 50 mg PO BID Atorvastatin [Lipitor] 40 mg PO DAILY Warfarin Sodium [Coumadin] 5 mg PO MOFR [place]-3 Fatty Acids/Fish Oil [Fish Oil 1,000 mg Softgel] 1 each PO DAILY Levothyroxine Sodium [Synthroid] 88 mcg PO DAILY Aspirin [Adult Low Dose Aspirin EC] 81 mg PO DAILY Warfarin [Coumadin] 3.75 mg PO SUTUWETHSA Discontinued Hydrochlorothiazide 12.5 mg PO DAILY Discharge Medication List Aspirin [Adult Low Dose Aspirin EC] 81 mg PO DAILY 03/03/17 [History] Atorvastatin [Lipitor] 40 mg PO DAILY 03/03/17 [History] Cholecalciferol [Vitamin D3] 1,000 unit PO DAILY 03/03/17 [History] Levothyroxine Sodium [Synthroid] 88 mcg PO DAILY 03/03/17 [History] Losartan [Cozaar] 50 mg PO BID 03/03/17 [History] [place]-3 Fatty Acids/Fish Oil [Fish Oil 1,000 mg Softgel] 1 each PO DAILY [History] Warfarin Sodium [Coumadin] 5 mg PO MOFR 03/03/17 [History] Warfarin [Coumadin] 3.75 mg PO SUTUWETHSA 03/15/18 [History] Hydrochlorothiazide [Hydrodiuril] 25 mg PO DAILY #30 tab 03/17/18 [Rx] Nitroglycerin Sl Tabs [Nitrostat] 0.4 mg SUBLINGUAL Q5M PRN #100 tab 03/17/18 [ Rx] amLODIPine [Norvasc] 5 mg PO DAILY #60 tab 03/17/18 [Rx] Follow up Appointment(s)/Referral(s): Darryl Huerta MD [STAFF PHYSICIAN] - 04/15/18 2:00 pm Hany Garrett DO [Primary Care Provider] - 1-2 days Patient Instructions/Handouts: Chest Pain (ED) Discharge Disposition: HOME SELF-CARE
[2018-03-18] MEDS ORDERED: WARFARIN 5 MG TAB PO SCH (18:00)
== END 2018-03-17 14:01 | disposition home or self-care (01) ==
LOC: EC 22:53 → 3OBS 03-16 00:15
PROVIDERS: ADMIT Internal Medicine; ATTEND Internal Medicine
DX: I10 Essential (primary) hypertension (principal); R07.89 Other chest pain; I16.1 Hypertensive emergency; R07.2 Precordial pain; R11.0 Nausea; I25.10 Atherosclerotic heart disease of native coronary artery without angina pectoris; E78.5 Hyperlipidemia, unspecified; I48.0 Paroxysmal atrial fibrillation; E03.9 Hypothyroidism, unspecified; Z79.82 Long term (current) use of aspirin; Z79.899 Other long term (current) drug therapy; Z79.01 Long term (current) use of anticoagulants; Z79.890 Hormone replacement therapy; Z80.9 Family history of malignant neoplasm, unspecified; E66.9 Obesity, unspecified; Z68.34 Body mass index [BMI] 34.0-34.9, adult; I49.5 Sick sinus syndrome
CPT/HCPCS: 99285 ×2; 36415; 93005; 93306; 93351; 80061; 80053; 82550 ×2; 82553 ×2; 83735; 84484 ×2; 85025; 85610 ×2; 85730; 71046; G0378 ×2; J1250

== ENCOUNTER → 2018-05-14 | Outpatient (CLI) | payer MEDICARE, BC ==
--- NOTE | 2018-05-14 18:31 | MR ---
EXAMINATION TYPE: MR lumbar spine wo con DATE OF EXAM: 05/14/2018 COMPARISON: None HISTORY: Low back pain and Left leg pain x 3 weeks TECHNIQUE: Multiplanar, multisequence images of the lumbar spine were acquired. FINDINGS: The lumbar spine vertebral bodies maintain normal vertebral body height and alignment. Bone marrow signal is within normal limits. Conus medullaris is unremarkable terminating at T12-L1. No rubio spicious extra dural fluid collection. Small anterior osteophytes are seen and multilevel disc desicc ation. L1-L2: There is intervertebral disc desiccation and a small left eccentric broad-based disc bulge cre ating minimal left neural foraminal narrowing. Spinal canal and neural foramen are patent. Mild facet arthropathy is seen. L2-L3: There is a small bilobed disc bulge with right paracentral annular tear and facet arthropathy creating minimal bilateral neural foraminal narrowing. Ligamentum flavum buckling is also seen withou t significant spinal canal stenosis. L3-L4: There is a broad-based disc bulge, facet arthropathy and ligamentum flavum buckling creating m ild spinal canal stenosis and mild bilateral neural foraminal narrowing. L4-L5: There is a left lateral disc herniation with extent into the neural foramen and left lateral r ecess creating moderate to severe left neural foraminal narrowing and mild right neural foraminal bruno rowing as well as mild spinal canal stenosis in combination with ligamentum flavum buckling and facet arthropathy. L5-S1: There is a small central disc herniation and annular tear superimposed upon a broad-based disc bulge. Facet arthropathy is also seen at this level. There is minimal neural foraminal narrowing. No spinal canal stenosis. IMPRESSION: 1. Left lateral disc herniation at L4-L5 crating moderate to severe left neural foraminal narrowing a nd mild spinal canal stenosis in combination with degenerative changes. 2. Small central disc herniation at L5-S1 in combination with degenerative disc disease creating mini mal bilateral neural foraminal narrowing. 3. Right paracentral annular tear at L2-L3 without spinal canal stenosis. Other multilevel degenerati ve disc disease as described above.
== END | disposition home or self-care (01) ==
LOC: RADMRIMAIN 09:17
PROVIDERS: ATTEND Internal Medicine
DX: M48.061 Spinal stenosis, lumbar region without neurogenic claudication (principal); M99.73 Connective tissue and disc stenosis of intervertebral foramina of lumbar region; M51.26 Other intervertebral disc displacement, lumbar region; M51.36 Other intervertebral disc degeneration, lumbar region; M47.816 Spondylosis without myelopathy or radiculopathy, lumbar region
CPT/HCPCS: 72148

== ENCOUNTER → 2020-08-26 | Outpatient (CLI) | payer MEDICARE, BC ==
--- NOTE | 2020-08-26 11:25 | US ---
EXAMINATION TYPE: US kidneys/renal and bladder DATE OF EXAM: 08/26/2020 COMPARISON: NONE CLINICAL HISTORY: 80-year-old female N18.9 CHRONIC KIDNEY DISEASE. TECHNIQUE: Multiple sonographic images of the kidneys and bladder are obtained. FINDINGS: EXAM MEASUREMENTS: Right Kidney: 9.1 x 4.9 x 4.0 cm Left Kidney: 9.3 x 4.4 x 3.7 cm No hydronephrosis on either side. Bladder: wnl Bilateral Jets seen: no IMPRESSION: No hydronephrosis on either side.
== END | disposition home or self-care (01) ==
LOC: RADUSWWP 08:53
PROVIDERS: ATTEND Family Medicine
DX: N18.9 Chronic kidney disease, unspecified (principal)
CPT/HCPCS: 76770

== ENCOUNTER → 2021-07-31 | Outpatient (CLI) | payer MEDICARE, BC ==
--- NOTE | 2021-07-31 10:48 | XR ---
EXAMINATION TYPE: XR chest 2V DATE OF EXAM: 07/31/2021 COMPARISON: 03/15/2018 TECHNIQUE: PA and lateral views submitted. HISTORY: Cough FINDINGS: The lungs are clear and there is no pneumothorax, pleural effusion, or focal pneumonia. Hyperinflati on. Correlate for joint arthropathy and diffuse pain. No overt failure. Hypertrophic change of the sp ine. IMPRESSION: 1. Cardiomegaly.
== END | disposition home or self-care (01) ==
LOC: RADXRMAIN 09:23
PROVIDERS: ATTEND Family Medicine
DX: R05 Cough (principal)
CPT/HCPCS: 71046

== ENCOUNTER 2021-08-01 11:59 | Observation (INO) | payer MEDICARE, BC ==
[2021-08-01] MEDS ORDERED: SODIUM CHLORIDE 0.9% 500 ML 500 ML IV STA (13:10)
--- NOTE | 2021-08-01 14:22 | ED ---
General Adult HPI - General Chief complaint: Dizziness Stated complaint: Dizziness/Not Feeling Well Source: patient Mode of arrival: ambulatory Limitations: no limitations - History of Present Illness Initial comments: 81-year-old female with past medical history of paroxysmal A. fib on Coumadin who presents emergency Department with reported presyncopal sensation. Granddaughter is at bedside and provides the history. States that her grandmother was standing in front of the kitchen doing dishes when she had sudden onset that she felt as if she was given a pass out. They were able to sit her in a chair. She never fully loss consciousness. She had some shortness of breath and chest palpitations. Had associated nausea without any vomiting. Denies any chest pain or shortness of breath. They did take her blood pressure and it was noted to be low. She denies any recent medication changes. She did have her Coumadin level checked this week and was found to be low and therefore they told her to increase her medication. Patient denies any headaches or visual changes. No unilateral numbness or weakness. Does admit to poor oral intake as she lost her earlier this year. Denies any black or bloody stools. 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 - Related Data Home Medications Medication Instructions Recorded Confirmed Aspirin [Adult Low Dose Aspirin EC] 81 mg PO DAILY 03/03/17 03/15/18 Atorvastatin [Lipitor] 40 mg PO DAILY 03/03/17 03/15/18 Cholecalciferol [Vitamin D3 (25 1,000 unit PO DAILY 03/03/17 03/15/18 Mcg = 1000 Iu)] Levothyroxine Sodium [Synthroid] 88 mcg PO DAILY 03/03/17 03/15/18 Losartan [Cozaar] 50 mg PO BID 03/03/17 03/15/18 [place]-3 Fatty Acids/Fish Oil [Fish 1 each PO DAILY 03/03/17 03/15/18 Oil 1,000 mg Softgel] Warfarin Sodium [Coumadin] 5 mg PO MOFR 03/03/17 03/15/18 Warfarin [Coumadin] 3.75 mg PO SUTUWETHSA 03/15/18 03/15/18 Previous Rx's Medication Instructions Recorded Nitroglycerin Sl Tabs [Nitrostat] 0.4 mg SUBLINGUAL Q5M PRN #100 tab 03/17/18 amLODIPine [Norvasc] 5 mg PO DAILY #60 tab 03/17/18 hydroCHLOROthiazide [Hydrodiuril] 25 mg PO DAILY #30 tab 03/17/18 Allergies Allergy/AdvReac Type Severity Reaction Status Date / Time No Known Allergies Allergy Verified 08/01/21 12:34 Review of Systems ROS Statement: Those systems with pertinent positive or pertinent negative responses have been documented in the HPI. ROS Other: All systems not noted in ROS Statement are negative. Past Medical History Past Medical History: Hyperlipidemia, Hypertension, Thyroid Disorder Additional Past Medical History / Comment(s): carotid endarectomy History of Any Multi-Drug Resistant Organisms: None Reported Past Surgical History: Orthopedic Surgery Additional Past Surgical History / Comment(s): eye surgery Past Anesthesia/Blood Transfusion Reactions: No Reported Reaction Past Psychological History: No Psychological Hx Reported Smoking Status: Never smoker Past Alcohol Use History: None Reported Past Drug Use History: None Reported - Past Family History Father Family Medical History: Myocardial Infarction ([place]) Additional Family Medical History / Comment(s): about 50yrs of age Brother(s) Family Medical History: Myocardial Infarction ([place]) Mother Family Medical History: AICD/Pacemaker, Cancer Additional Family Medical History / Comment(s): heart disease General Exam Limitations: no limitations Course Vital Signs 08/01/21 08/01/21 08/01/21 12:30 13:02 13:17 Temperature 97.9 F Pulse Rate 61 89 Pulse Rate [ 108 H Sitting Pulse Oximetery] Pulse Rate [ 130 H Standing Pulse Oximetery] Pulse Rate [ 93 Supine Pulse Oximetery] Respiratory 20 18 Rate Blood Pressure 134/72 128/93 Blood Pressure 122/78 [Right Arm Sitting] Blood Pressure 105/70 [Right Arm Standing] Blood Pressure 132/83 [Right Arm Supine] O2 Sat by Pulse 96 99 Oximetry 08/01/21 16:32 Temperature Pulse Rate 87 Pulse Rate [ Sitting Pulse Oximetery] Pulse Rate [ Standing Pulse Oximetery] Pulse Rate [ Supine Pulse Oximetery] Respiratory 16 Rate Blood Pressure 133/98 Blood Pressure [Right Arm Sitting] Blood Pressure [Right Arm Standing] Blood Pressure [Right Arm Supine] O2 Sat by Pulse 99 Oximetry EKG Findings - EKG Comments: EKG Findings:: EKG demonstrates A. fib with a rate of 88. QRS 78. QTC of 452. No acute ST segment elevations or depressions Medical Decision Making - Medical Decision Making Final patient is placed in room 10. Thorough history and physical exam is performed. 12 EKG is performed which demonstrates A. fib with a controlled ventricular rate. Orthostatics are obtained and are positive. Patient does have a heart rate that was up to 1:30 upon standing. She feels dizzy upon ambulation. IV is established and laboratory studies are conducted. Patient is given a 500 bolus of normal saline followed by 75 mL per hour. Laboratory studies are reviewed. INR therapeutic at 2. Troponin is negative. Patient did have a chest x-ray outpatient setting from her Primary care physician which was negative. Due to orthostatic hypotension did recommend admission for which the patient did agree to. Spoke with Dr. kimberly reed to admit the patient. We'll slowly hydrate the patient overnight and have cardiology to consult. Patient agreed to the treatment plan and is currently awaiting a bed on the floor - Lab Data Result diagrams: 08/01/21 13:14 08/01/21 13:14 Lab Results 08/01/21 08/01/21 08/01/21 Range/Units 13:14 13:14 13:14 WBC 7.6 (3.8-10.6) k/uL RBC 3.87 (3.80-5.40) m/uL Hgb 11.9 (11.4-16.0) gm/dL Hct 36.2 (34.0-46.0) % MCV 93.5 (80.0-100.0) fL MCH 30.6 (25.0-35.0) pg MCHC 32.8 (31.0-37.0) g/dL RDW 13.4 (11.5-15.5) % Plt Count 266 (150-450) k/uL MPV 7.6 Neutrophils % 80 % Lymphocytes % 13 % Monocytes % 4 % Eosinophils % 1 % Basophils % 1 % Neutrophils # 6.1 (1.3-7.7) k/uL Lymphocytes # 1.0 (1.0-4.8) k/uL Monocytes # 0.3 (0-1.0) k/uL Eosinophils # 0.1 (0-0.7) k/uL Basophils # 0.0 (0-0.2) k/uL PT 19.9 H (9.0-12.0) sec INR 2.0 H (<1.2) APTT 26.8 (22.0-30.0) sec Sodium 138 (137-145) mmol/L Potassium 4.1 (3.5-5.1) mmol/L Chloride 107 (98-107) mmol/L Carbon Dioxide 24 (22-30) mmol/L Anion Gap 7 mmol/L BUN 25 H (7-17) mg/dL Creatinine 1.37 H (0.52-1.04) mg/dL Est GFR (CKD-EPI)AfAm 42 (>60 ml/min/1.73 sqM) Est GFR (CKD-EPI)NonAf 36 (>60 ml/min/1.73 sqM) Glucose 108 H (74-99) mg/dL Calcium 9.6 (8.4-10.2) mg/dL Total Bilirubin 1.0 (0.2-1.3) mg/dL AST 26 (14-36) U/L ALT 16 (4-34) U/L Alkaline Phosphatase 103 (38-126) U/L Troponin I (0.000-0.034) ng/mL Total Protein 6.9 (6.3-8.2) g/dL Albumin 3.7 (3.5-5.0) g/dL 08/01/21 Range/Units 14:06 WBC (3.8-10.6) k/uL RBC (3.80-5.40) m/uL Hgb (11.4-16.0) gm/dL Hct (34.0-46.0) % MCV (80.0-100.0) fL MCH (25.0-35.0) pg MCHC (31.0-37.0) g/dL RDW (11.5-15.5) % Plt Count (150-450) k/uL MPV Neutrophils % % Lymphocytes % % Monocytes % % Eosinophils % % Basophils % % Neutrophils # (1.3-7.7) k/uL Lymphocytes # (1.0-4.8) k/uL Monocytes # (0-1.0) k/uL Eosinophils # (0-0.7) k/uL Basophils # (0-0.2) k/uL PT (9.0-12.0) sec INR (<1.2) APTT (22.0-30.0) sec Sodium (137-145) mmol/L Potassium (3.5-5.1) mmol/L Chloride (98-107) mmol/L Carbon Dioxide (22-30) mmol/L Anion Gap mmol/L BUN (7-17) mg/dL Creatinine (0.52-1.04) mg/dL Est GFR (CKD-EPI)AfAm (>60 ml/min/1.73 sqM) Est GFR (CKD-EPI)NonAf (>60 ml/min/1.73 sqM) Glucose (74-99) mg/dL Calcium (8.4-10.2) mg/dL Total Bilirubin (0.2-1.3) mg/dL AST (14-36) U/L ALT (4-34) U/L Alkaline Phosphatase (38-126) U/L Troponin I <0.012 (0.000-0.034) ng/mL Total Protein (6.3-8.2) g/dL Albumin (3.5-5.0) g/dL Disposition Clinical Impression: Afib, Orthostatic hypotension, Pre-syncope Disposition: ADMITTED IP TO THIS [facility] Condition: Stable Is patient prescribed a controlled substance at d/c from ED?: No Referrals: Ama Carodna MD [Primary Care Provider] - 1-2 days Decision to Admit Reason: Admit from EC Decision Date: 08/01/21 Decision Time: 16:29
[2021-08-01 14:59] LABS: Basophils % (A) 1 %; Eosinophils # (A) 0.1 k/uL (0-0.7); Eosinophils % (A) 1 %; HCT 36.2 % (34.0-46.0); HGB 11.9 gm/dL (11.4-16.0); Lymphocytes % (A) 13 %; MCH 30.6 pg (25.0-35.0); MCHC 32.8 g/dL (31.0-37.0); MCV 93.5 fL (80.0-100.0); Mean Platelet Volume 7.6; Monocytes # (A) 0.3 k/uL (0-1.0); Monocytes % (A) 4 %; Neutrophils # (A) 6.1 k/uL (1.3-7.7); Neutrophils % (A) 80 %; Platelet Count 266 k/uL (150-450); RBC 3.87 m/uL (3.80-5.40); RDW 13.4 % (11.5-15.5); WBC 7.6 k/uL (3.8-10.6)
[2021-08-01 15:08] LABS: Partial Thromboplastin Time 26.8 sec (22.0-30.0); Prothrombin Time 19.9 sec (9.0-12.0)
[2021-08-01 15:16] LABS: Albumin 3.7 g/dL (3.5-5.0); Calcium 9.6 mg/dL (8.4-10.2); Potassium 4.1 mmol/L (3.5-5.1); Total Protein 6.9 g/dL (6.3-8.2)
[2021-08-01] MEDS ORDERED: NALOXONE 0.4 MG/ML 1 ML VIAL IV PRN (16:29)
--- NOTE | 2021-08-01 16:54 | P.HPIM ---
History of Present Illness This is a 81-year-old female with past medical history noted below significant for chronic atrial fibrillation and presented to the emergency room with dizziness and presyncope. Patient said that her symptoms started today while flash bennett was standing in the kitchen doing dishes and suddenly felt very dizzy and almost passed out. Her family was around and had her to sit down. Patient never lost consciousness. Patient herself denies palpitation or chest pain. She is laying in bed comfortably right now. She denies any dizziness while laying in bed. She was noted to be orthostatic positive in the ER. Heart rate went up to 130s with ambulation but otherwise she isn't rate controlled A. fib. Patient and her family admits to poor by mouth intake recently. Her granddaughter informs me that patient lost her in March and until now she did not recover completely. I asked the patient if she is feeling depressed she said no that she definitely act as if she was depressed. She also reports losing weight. Patient said that she is not feeling thirsty or hungry. She denies any abdominal pain or nausea. Review of Systems Review of system: 14 points review of systems were obtained and were negative except to what were mentioned in the HPI. Past Medical History Past Medical History: Hyperlipidemia, Hypertension, Thyroid Disorder Additional Past Medical History / Comment(s): carotid endarectomy History of Any Multi-Drug Resistant Organisms: None Reported Past Surgical History: Orthopedic Surgery Additional Past Surgical History / Comment(s): eye surgery Past Anesthesia/Blood Transfusion Reactions: No Reported Reaction Past Psychological History: No Psychological Hx Reported Smoking Status: Never smoker Past Alcohol Use History: None Reported Past Drug Use History: None Reported - Past Family History Father Family Medical History: Myocardial Infarction ([place]) Additional Family Medical History / Comment(s): about 50yrs of age Brother(s) Family Medical History: Myocardial Infarction ([place]) Mother Family Medical History: AICD/Pacemaker, Cancer Additional Family Medical History / Comment(s): heart disease Medications and Allergies Home Medications Medication Instructions Recorded Confirmed Type Aspirin [Adult Low Dose Aspirin EC] 81 mg PO DAILY 03/03/17 03/15/18 History Atorvastatin [Lipitor] 40 mg PO DAILY 03/03/17 03/15/18 History Cholecalciferol [Vitamin D3 (25 1,000 unit PO DAILY 03/03/17 03/15/18 History Mcg = 1000 Iu)] Levothyroxine Sodium [Synthroid] 88 mcg PO DAILY 03/03/17 03/15/18 History Losartan [Cozaar] 50 mg PO BID 03/03/17 03/15/18 History [place]-3 Fatty Acids/Fish Oil [Fish 1 each PO DAILY 03/03/17 03/15/18 History Oil 1,000 mg Softgel] Warfarin Sodium [Coumadin] 5 mg PO MOFR 03/03/17 03/15/18 History Warfarin [Coumadin] 3.75 mg PO SUTUWETHSA 03/15/18 03/15/18 History Nitroglycerin Sl Tabs [Nitrostat] 0.4 mg SUBLINGUAL Q5M PRN #100 tab 03/17/18 Rx amLODIPine [Norvasc] 5 mg PO DAILY #60 tab 03/17/18 Rx hydroCHLOROthiazide [Hydrodiuril] 25 mg PO DAILY #30 tab 03/17/18 Rx Allergies Allergy/AdvReac Type Severity Reaction Status Date / Time No Known Allergies Allergy Verified 08/01/21 12:34 Physical Exam Vitals: Vital Signs Temp Pulse Pulse Pulse Pulse Resp BP 08/01/21 16:32 87 16 133/98 08/01/21 13:17 108 H 130 H 93 08/01/21 13:02 89 18 128/93 08/01/21 12:30 97.9 F 61 20 134/72 BP BP BP Pulse Ox 08/01/21 16:32 99 08/01/21 13:17 122/78 105/70 132/83 08/01/21 13:02 99 08/01/21 12:30 96 Intake and Output 08/01/21 08/01/21 08/01/21 06:59 14:59 22:59 Other: Weight 73.89 kg General: The patient is awake and alert, in no distress Eye: there is normal conjunctiva bilaterally. Neck: The neck is supple, there is no JVD. Cardiovascular: Normal S1-S2, no S3-S4, no murmurs. Respiratory: Lungs clear to auscultation bilaterally Gastrointestinal: Abdomen is soft, nontender Musculoskeletal: There is no pedal edema. Neurological:. Speech is normal. Skin: Skin is warm and dry Results CBC & Chem 7: 08/01/21 13:14 08/01/21 13:14 Labs: Abnormal Lab Results - Last 24 Hours (Table) 08/01/21 08/01/21 Range/Units 13:14 13:14 PT 19.9 H (9.0-12.0) sec INR 2.0 H (<1.2) BUN 25 H (7-17) mg/dL Creatinine 1.37 H (0.52-1.04) mg/dL Glucose 108 H (74-99) mg/dL Assessment and Plan Assessment: 1. Dizziness with presyncope, most likely secondary to dehydration. Orthostatic blood pressure positive in the ER. Continue gentle IV fluid hydration. Discontinue hydrochlorothiazide. We will continue color television console monitor otherwise. 2. Chronic medical problems: Chronic atrial fibrillation on anticoagulation with Coumadin, essential hypertension, history of coronary artery disease, hyperlipidemia Today, I reviewed her medication list and lab work results. Monitor orthostatic blood pressure every 8 hours. Anticipate discharge home tomorrow.
[2021-08-01] MEDS: SODIUM CHLORIDE 0.9% 1,000 ML IV SCH (17:00)
[2021-08-01] MEDS ORDERED: WARFARIN 7.5 MG TAB PO SCH (19:00)
[2021-08-01 19:35] LABS: Appearance,Urine Clear (Clear); Bacteria,Urine Rare /hpf; Bilirubin,Urine Negative (Negative); Blood,Urine Moderate (Negative); Color,Urine Light Yellow; Glucose,Urine (UA) Negative (Negative); Hyaline Casts,Urine 8 /lpf (0-2); Ketones,Urine Negative (Negative); Leukocyte Esterase,Urine Large (Negative); Mucus,Urine Rare /hpf; Nitrite,Urine Negative (Negative); PH, Urine 6.5 (5.0-8.0); Protein,Urine 1+ (Negative); RBC,Urine 4 /hpf (0-5); Specific Gravity,Urine 1.009 (1.001-1.035); Squamous Epithelial Cell,Urine 2 /hpf (0-4); Urobilinogen,Urine <2.0 mg/dL (<2.0); WBC,Urine 13 /hpf (0-5)
[2021-08-01] MEDS: WARFARIN 7.5 MG TAB PO SCH (22:51)
[2021-08-01] MEDS: ATORVASTATIN 80 MG TAB PO SCH (22:52)
[2021-08-02] MEDS: SODIUM CHLORIDE 0.9% 1,000 ML IV SCH ×2 (06:07→20:39)
[2021-08-02] MEDS ORDERED: LEVOTHYROXINE 88 MCG TAB PO SCH (06:30)
--- NOTE | 2021-08-02 09:19 | P.CRDCN ---
History of Present Illness Consult date: 08/02/21 History of present illness: This is a 81-year-old female with history of chronic atrial fibrillation, coronary artery disease and also carotid disease who presented to the hospital with complaints of dizziness and near syncope. Patient was standing in the kitchen and apparently she felt very dizzy as if she is going to pass out. There is no syncopal episode. No complaints of chest pain or shortness of breath. An EKG showed atrial fibrillation with controlled ventricular response. Lab work is within normal limits. Troponins are negative. Patient was started on IV fluids. Apparently she lost her recently and hasn't recovered. She hasn't been eating properly. In the emergency room, it was documented that patient had postural hypotension. Her symptoms appear to be related to postural hypotension. Continue to hold hypertensive medication at this time. Continue with the IV fluids and advance and increase food intake. Continue to monitor blood pressure for postural changes. May resume some of the antihypertensive medication, probably within next 24-48 hours. No further cardiac workup at this time Review of Systems As per the chart Past Medical History Past Medical History: Atrial Fibrillation, Hyperlipidemia, Hypertension, Thyroid Disorder Additional Past Medical History / Comment(s): carotid endarectomy History of Any Multi-Drug Resistant Organisms: None Reported Past Surgical History: Orthopedic Surgery Additional Past Surgical History / Comment(s): eye surgery Past Anesthesia/Blood Transfusion Reactions: No Reported Reaction Past Psychological History: No Psychological Hx Reported Smoking Status: Never smoker Past Alcohol Use History: None Reported Past Drug Use History: None Reported - Past Family History Father Family Medical History: Myocardial Infarction ([place]) Additional Family Medical History / Comment(s): about 50yrs of age Brother(s) Family Medical History: Myocardial Infarction ([place]) Mother Family Medical History: AICD/Pacemaker, Cancer Additional Family Medical History / Comment(s): heart disease Medications and Allergies Home Medications Medication Instructions Recorded Confirmed Type Levothyroxine Sodium [Synthroid] 88 mcg PO MOTUWETHFRSA 03/03/17 08/01/21 History [place]-3 Fatty Acids/Fish Oil [Fish 1 tab PO DAILY 03/03/17 08/01/21 History Oil 1,000 mg Softgel] Warfarin [Coumadin] 3.75 mg PO SUTUWETHFRSA 03/15/18 08/01/21 History amLODIPine [Norvasc] 5 mg PO DAILY #60 tab 03/17/18 08/01/21 Rx Atorvastatin [Lipitor] 80 mg PO HS 08/01/21 08/01/21 History Cholecalciferol [Vitamin D3 (25 25 mcg PO DAILY 08/01/21 08/01/21 History Mcg = 1000 Iu)] Levothyroxine Sodium [Synthroid] 176 mcg PO LEUNG 08/01/21 08/01/21 History Losartan/Hydrochlorothiazide 1 tab PO DAILY 08/01/21 08/01/21 History [Losartan-Hctz 100-25 mg Tab] Allergies Allergy/AdvReac Type Severity Reaction Status Date / Time No Known Allergies Allergy Verified 08/01/21 18:01 Physical Exam Vitals: Vital Signs Temp Pulse Pulse Pulse Pulse Resp BP 08/02/21 07:00 98.1 F 65 17 08/02/21 01:31 97.9 F 75 16 08/01/21 20:00 16 08/01/21 19:19 97.9 F 83 16 08/01/21 17:01 96 16 118/87 08/01/21 16:32 87 16 133/98 08/01/21 13:17 108 H 130 H 93 08/01/21 13:02 89 18 128/93 08/01/21 12:30 97.9 F 61 20 134/72 BP BP BP Pulse Ox 08/02/21 07:00 112/68 97 08/02/21 01:31 100/63 96 08/01/21 20:00 08/01/21 19:19 147/71 98 08/01/21 17:01 98 08/01/21 16:32 99 08/01/21 13:17 122/78 105/70 132/83 08/01/21 13:02 99 08/01/21 12:30 96 Intake and Output 08/01/21 08/02/21 08/02/21 22:59 06:59 14:59 Intake Total 0 Balance 0 Intake: Oral 0 Other: Voiding Method Toilet Toilet # Voids 1 2 Weight 73.89 kg GENERAL EXAM: Patient is alert and oriented and doesn't appear to be in any acute distress HEENT: Normocephalic. Normal reaction of pupils, equal size, normal range of extraocular motion. No erythema or exudates in the throat. NECK: No masses, no nuchal rigidity. CHEST: No chest wall deformity. LUNGS: Equal air entry with no crackles or wheeze. HEART: S1 and S2 normal with irregular heart sounds ABDOMEN: No hepatosplenomegaly, normal bowel sounds, no guarding or rigidity. SKIN: No rashes CENTRAL NERVOUS SYSTEM: No focal deficits. EXTREMITIES: No cyanosis, clubbing or edema. Results 08/01/21 13:14 08/01/21 13:14 Cardiac Enzymes 08/01/21 08/01/21 08/01/21 Range/Units 13:14 14:06 18:55 AST 26 (14-36) U/L Troponin I <0.012 0.017 (0.000-0.034) ng/mL 08/01/21 Range/Units 22:42 AST (14-36) U/L Troponin I <0.012 (0.000-0.034) ng/mL Coagulation 08/01/21 Range/Units 13:14 PT 19.9 H (9.0-12.0) sec APTT 26.8 (22.0-30.0) sec CBC 08/01/21 Range/Units 13:14 WBC 7.6 (3.8-10.6) k/uL RBC 3.87 (3.80-5.40) m/uL Hgb 11.9 (11.4-16.0) gm/dL Hct 36.2 (34.0-46.0) % Plt Count 266 (150-450) k/uL Comprehensive Metabolic Panel 08/01/21 Range/Units 13:14 Sodium 138 (137-145) mmol/L Potassium 4.1 (3.5-5.1) mmol/L Chloride 107 (98-107) mmol/L Carbon Dioxide 24 (22-30) mmol/L BUN 25 H (7-17) mg/dL Creatinine 1.37 H (0.52-1.04) mg/dL Glucose 108 H (74-99) mg/dL Calcium 9.6 (8.4-10.2) mg/dL AST 26 (14-36) U/L ALT 16 (4-34) U/L Alkaline Phosphatase 103 (38-126) U/L Total Protein 6.9 (6.3-8.2) g/dL Albumin 3.7 (3.5-5.0) g/dL Current Medications Generic Name Dose Route Start Last Admin Trade Name Freq PRN Reason Stop Dose Admin Atorvastatin Calcium 80 mg 08/01/21 21:00 08/01/21 22:52 Atorvastatin 80 Mg Tab PO 80 mg HS SAV Administration Sodium Chloride 1,000 mls @ 75 mls/hr 08/01/21 16:45 08/02/21 06:07 Saline 0.9% IV 75 mls/hr .[id number] SAV Administration Levothyroxine Sodium 176 mcg 08/03/21 06:30 Levothyroxine 88 Mcg Tab PO [id number] SAV Levothyroxine Sodium 88 mcg 08/02/21 06:30 08/02/21 06:06 Levothyroxine 88 Mcg Tab PO 88 mcg [id number] [facility] Administration Miscellaneous Information 1 each 08/01/21 16:59 Warfarin Per Pharmacy MISCELLANE DIRECTED PRN Per Protocol Protocol Naloxone HCl 0.2 mg 08/01/21 16:29 Naloxone 0.4 Mg/Ml 1 Ml Vial IV Q2M PRN Opioid Reversal Warfarin Sodium 3.75 mg 08/01/21 19:00 08/01/21 22:51 Warfarin 7.5 Mg Tab PO 3.75 mg [id number] [facility] Administration Intake and Output 08/01/21 08/02/21 08/02/21 22:59 06:59 14:59 Intake Total 0 Balance 0 Intake: Oral 0 Other: Voiding Method Toilet Toilet # Voids 1 2 Weight 73.89 kg 08/01/21 13:14 08/01/21 13:14 EKG Interpretations (text) Atrial fibrillation with fairly well-controlled heart rate at rest Assessment and Plan (1) CAD (coronary artery disease) Current Visit: Yes Status: Acute Code(s): I25.10 - ATHSCL HEART DISEASE OF [place] CORONARY ARTERY W/O ANG PCTRS SNOMED Code(s): 85348474 (2) Afib Current Visit: Yes Status: Acute Code(s): I48.91 - UNSPECIFIED ATRIAL FIBRILLATION SNOMED Code(s): 86797954 (3) Orthostatic hypotension Current Visit: Yes Status: Acute Code(s): I95.1 - ORTHOSTATIC HYPOTENSION SNOMED Code(s): 35547418 (4) Carotid arterial disease Current Visit: Yes Status: Acute Code(s): I77.9 - DISORDER OF ARTERIES AND ARTERIOLES, UNSPECIFIED SNOMED Code(s): 377399238 Plan: Continue to monitor her blood pressure for postural changes. Continue with IV fluids and increase oral intake. Hold antihypertensive medications for now. Further recommendations depend upon clinical course. If necessary, knee-high stockings and also adding Midodrin may be considered.
[2021-08-02 09:27] LABS: Basophils # (A) 0.07 X 10*3/uL (0.00-0.10); Basophils % (A) 0.9 %; Eosinophils # (A) 0.21 X 10*3/uL (0.04-0.35); Eosinophils % (A) 2.8 %; HCT 32.5 % (37.2-46.3); HGB 10.7 g/dL (12.0-15.0); Lymphocytes # (A) 1.68 X 10*3/uL (0.90-5.00); Lymphocytes % (A) 22.2 %; MCH 30.3 pg (27.0-32.0); MCHC 32.9 g/dL (32.0-37.0); MCV 92.1 fL (80.0-97.0); Mean Platelet Volume 11.8 fL (9.5-12.2); Monocytes # (A) 0.67 X 10*3/uL (0.20-1.00); Monocytes % (A) 8.9 %; Neutrophils % (A) 64.8 %; Platelet Count 185 X 10*3/uL (140-440); RBC 3.53 X 10*6/uL (4.10-5.20); RDW 13.5 % (11.5-14.5); WBC 7.56 X 10*3/uL (4.50-10.00)
[2021-08-02 11:59] LABS: INR 2.2 (<1.2); Prothrombin Time 21.4 sec (9.0-12.0)
[2021-08-02 11:59] LABS: African American GFR (CKD) 40.7 (60.0-200.0); Anion Gap 7.8 mmol/L (4.00-12.00); BUN/Creat Ratio 18.57 Ratio (12.00-20.00); Calcium 9.3 mg/dL (8.7-10.3); Carbon Dioxide 24.2 mmol/L (21.6-31.8); Non-African American GFR(CKD) 35.1 (60.0-200.0); Potassium 3.8 mmol/L (3.5-5.5)
--- NOTE | 2021-08-02 14:01 | P.PN ---
Subjective Patient reported that her dizziness is better today. She was up to the bathroom earlier with minimal dizziness. Orthostatic blood pressure slightly positive in terms of systolic blood pressure. Objective - Vital Signs Vital signs: Vital Signs Temp 98.1 F 08/02/21 07:00 Pulse 79 08/02/21 10:15 Resp 17 08/02/21 07:00 BP 126/73 08/02/21 10:15 Pulse Ox 97 08/02/21 07:00 Intake & Output 08/01/21 08/02/21 08/02/21 18:59 06:59 18:59 Intake Total 0 Balance 0 Weight 73.89 kg 73.89 kg Intake: Oral 0 Other: Voiding Method Toilet Toilet # Voids 2 - Exam General: The patient is awake and alert, in no distress Eye: there is normal conjunctiva bilaterally. Neck: The neck is supple, there is no JVD. Cardiovascular: Normal S1-S2, no S3-S4, no murmurs. Respiratory: Lungs clear to auscultation bilaterally Gastrointestinal: Abdomen is soft, nontender Musculoskeletal: There is no pedal edema. Neurological:. Speech is normal. Skin: Skin is warm and dry - Labs CBC & Chem 7: 08/02/21 06:41 08/02/21 06:41 Labs: Abnormal Lab Results - Last 24 Hours (Table) 08/01/21 08/01/21 08/01/21 Range/Units 13:14 13:14 13:14 RBC (4.10-5.20) X 10*6/uL Hgb (12.0-15.0) g/dL Hct (37.2-46.3) % PT 19.9 H (9.0-12.0) sec INR 2.0 H (<1.2) BUN 25 H (7-17) mg/dL Creatinine 1.37 H (0.52-1.04) mg/dL Est GFR (CKD-EPI)AfAm (60.0-200.0) Est GFR (CKD-EPI)NonAf (60.0-200.0) Glucose 108 H (74-99) mg/dL Urine Protein 1+ H (Negative) Urine Blood Moderate H (Negative) Ur Leukocyte Esterase Large H (Negative) Urine WBC 13 H (0-5) /hpf Urine Bacteria Rare H (None) /hpf Hyaline Casts 8 H (0-2) /lpf Urine Mucus Rare H (None) /hpf 08/02/21 08/02/21 08/02/21 Range/Units 06:41 06:41 11:32 RBC 3.53 L (4.10-5.20) X 10*6/uL Hgb 10.7 L (12.0-15.0) g/dL Hct 32.5 L (37.2-46.3) % PT 21.4 H (9.0-12.0) sec INR 2.2 H (<1.2) BUN (7-17) mg/dL Creatinine (0.52-1.04) mg/dL Est GFR (CKD-EPI)AfAm 40.7 L (60.0-200.0) Est GFR (CKD-EPI)NonAf 35.1 L (60.0-200.0) Glucose (74-99) mg/dL Urine Protein (Negative) Urine Blood (Negative) Ur Leukocyte Esterase (Negative) Urine WBC (0-5) /hpf Urine Bacteria (None) /hpf Hyaline Casts (0-2) /lpf Urine Mucus (None) /hpf Assessment and Plan Assessment: 1. Dizziness with presyncope, most likely secondary to dehydration. Orthostatic blood pressure positive in the ER. Continue gentle IV fluid hydration. Discontinue hydrochlorothiazide. We will continue hand stitcher otherwise. 2. Chronic medical problems: Chronic atrial fibrillation on anticoagulation with Coumadin, essential hypertension, history of coronary artery disease, hyperlipidemia Today, I reviewed her medication list and lab work results. Monitor orthostatic blood pressure every 8 hours. All of her home blood pressure medications currently on hold. We will continue to monitor blood pressure closely. Cardiology consulted by ER staff Anticipate discharge home tomorrow.
[2021-08-02] MEDS: WARFARIN 7.5 MG TAB PO SCH (17:56)
[2021-08-02] MEDS: ATORVASTATIN 80 MG TAB PO SCH (20:39)
[2021-08-03] MEDS ORDERED: LEVOTHYROXINE 88 MCG TAB PO SCH (06:30)
[2021-08-03 06:45] LABS: INR 2.6 (<1.2); Prothrombin Time 25.3 sec (9.0-12.0)
[2021-08-03 08:21] VITALS: RESP 18; TEMP 98.2
[2021-08-03] MEDS: SODIUM CHLORIDE 0.9% 1,000 ML IV SCH (08:43)
[2021-08-03 10:31] VITALS: BP 152/70; PULSE 78
--- NOTE | 2021-08-03 12:59 | P.DS ---
Providers Date of admission: 08/01/21 16:29 Expected date of discharge: 08/03/21 Attending physician: Nguyen Ramon Consults: 08/01/21 16:30 Consult Physician Urgent Consulting Provider: Draryl Huerta Consult Reason/Comments: presyncope, orthostatic hypotension, afib with rvr Do you want consulting provider notified?: Yes [facility] [place] Hospital Course: This is a 81-year-old female with past medical history noted below that presented to the hospital with dizziness and presyncope. Patient was placed on observation for further management of her medical problems noted below. 1. Dizziness with presyncope, most likely secondary to dehydration. Orthostatic blood pressure positive in the ER. 2. Chronic medical problems: Chronic atrial fibrillation on anticoagulation with Coumadin, essential hypertension, history of coronary artery disease, hyperlipidemia Patient was given IV fluid hydration. Her overall condition improved significantly throughout her hospital stay. She was seen and evaluated by cardiology. On home blood pressure medications has been discontinued and blood pressure remained within acceptable range. Patient will be discharged home in a stable condition. She will follow-up with cardiology in the office as directed. General: The patient is awake and alert, in no distress Eye: there is normal conjunctiva bilaterally. Neck: The neck is supple, there is no JVD. Cardiovascular: Normal S1-S2, no S3-S4, no murmurs. Respiratory: Lungs clear to auscultation bilaterally Gastrointestinal: Abdomen is soft, nontender Musculoskeletal: There is no pedal edema. Neurological:. Speech is normal. Skin: Skin is warm and dry Patient Condition at Discharge: Stable Plan - Discharge Summary New Discharge Prescriptions: Continue [place]-3 Fatty Acids/Fish Oil [Fish Oil 1,000 mg Softgel] 1 tab PO DAILY Levothyroxine Sodium [Synthroid] 88 mcg PO MOTUWETHFRSA Warfarin [Coumadin] 3.75 mg PO SUTUWETHFRSA Cholecalciferol [Vitamin D3 (25 Mcg = 1000 Iu)] 25 mcg PO DAILY Levothyroxine Sodium [Synthroid] 176 mcg PO IBRAHIM Atorvastatin [Lipitor] 80 mg PO HS Discontinued amLODIPine [Norvasc] 5 mg PO DAILY #60 tab Losartan/Hydrochlorothiazide [Losartan-Hctz 100-25 mg Tab] 1 tab PO DAILY Discharge Medication List Levothyroxine Sodium [Synthroid] 88 mcg PO MOTUWETHFRSA 03/03/17 [History] [place]-3 Fatty Acids/Fish Oil [Fish Oil 1,000 mg Softgel] 1 tab PO DAILY 03/03/17 [History] Warfarin [Coumadin] 3.75 mg PO SUTUWETHFRSA 03/15/18 [History] Atorvastatin [Lipitor] 80 mg PO HS 08/01/21 [History] Cholecalciferol [Vitamin D3 (25 Mcg = 1000 Iu)] 25 mcg PO DAILY 08/01/21 [History] Levothyroxine Sodium [Synthroid] 176 mcg PO IBRAHIM 08/01/21 [History] Follow up Appointment(s)/Referral(s): Darryl Huerta MD [STAFF PHYSICIAN] - 1 Week Ama Cardona MD [Primary Care Provider] - 1-2 days Activity/Diet/Wound Care/Special Instructions: Hold BP medications, monitor BP at home and take list to appointments with Dr. Jet leon and Dr. Cardona. Patient most likely will need to resume amlodpipine possibly at lower dose Discharge Disposition: HOME SELF-CARE
--- NOTE | 2021-08-03 14:32 | P.PN ---
Subjective Progress Note Date: 08/03/21 History of present illness: This is a 81-year-old female with history of chronic atrial fibrillation, jerrod nary artery disease and also carotid disease who presented to the hospital with complaints of dizziness and near syncope. Patient was standing in the kitchen and apparently she felt very dizzy as if she is going to pass out. There is no syncopal episode. No complaints of chest pain or shortness of breath. An EKG showed atrial fibrillation with controlled ventricular response. Lab work is within normal limits. Troponins are negative. Patient was started on IV fluids. Apparently she lost her recently and hasn't recovered. She hasn't been eating properly. In the emergency room, it was documented that patient had postural hypotension. Her symptoms appear to be related to postural hypotension. Continue to hold hypertensive medication at this time. Continue with the IV fluids and advance and increase food intake. Continue to monitor blood pressure for postural changes. May resume some of the antihypertensive medication, probably within next 24-48 hours. No further cardiac workup at this time 08/03: Orthostatic vital signs are positive and patient instructed to hold amlodipine and losartan hydrochlorothiazide. Blood pressure at rest is 138/73. Heart rate is running in the 70s and 80s. Repeat INR 2.6. Patient's daughter instructed to monitor blood pressure at home and if this becomes high contact her physician or Dr. Phillips otherwise hold blood pressure medications until rechecked in the office. Physical examination: GENERAL EXAM: Patient is alert and oriented and doesn't appear to be in any acute distress HEENT: Normocephalic. Normal reaction of pupils, equal size, normal range of extraocular motion. No erythema or exudates in the throat. NECK: No masses, no nuchal rigidity. CHEST: No chest wall deformity. LUNGS: Equal air entry with no crackles or wheeze. HEART: S1 and S2 normal with irregular heart sounds ABDOMEN: No hepatosplenomegaly, normal bowel sounds, no guarding or rigidity. SKIN: No rashes CENTRAL NERVOUS SYSTEM: No focal deficits. EXTREMITIES: No cyanosis, clubbing or edema. Assessment: Orthostatic hypotension Coronary artery disease Chronic atrial fibrillation Carotid artery disease Plan: Hold antihypertensive medications, monitor blood pressures at home Follow up with Dr. Huerta in 1 week Nurse practitioner note has been reviewed, I agree with documented findings and plan of care. Patient was seen and examined. Objective - Vital Signs Vital signs: Vital Signs Temp 98.2 F 08/03/21 07:00 Pulse 74 08/03/21 07:00 Resp 18 08/03/21 07:00 BP 138/73 08/03/21 07:00 Pulse Ox 98 08/03/21 07:00 Intake & Output 08/02/21 08/03/21 08/03/21 18:59 06:59 18:59 Intake Total 600 354 Balance 600 354 Intake: Intake, IV Titration 600 Amount Sodium Chloride 0.9% 1, 600 000 ml @ 75 mls/hr IV . [id number] [facility] Rx#:[id number] Oral 354 Other: Voiding Method Toilet Toilet Toilet # Voids 2 - Labs CBC & Chem 7: 08/02/21 06:41 08/02/21 06:41 Labs: Abnormal Lab Results - Last 24 Hours (Table) 08/02/21 08/02/21 08/03/21 Range/Units 06:41 11:32 06:13 PT 21.4 H 25.3 H (9.0-12.0) sec INR 2.2 H 2.6 H (<1.2) Est GFR (CKD-EPI)AfAm 40.7 L (60.0-200.0) Est GFR (CKD-EPI)NonAf 35.1 L (60.0-200.0)
== END 2021-08-03 13:37 | disposition home or self-care (01) ==
LOC: EC 11:59 → 6NMEDSUR 16:29
PROVIDERS: ADMIT Internal Medicine; ATTEND Internal Medicine
DX: I95.1 Orthostatic hypotension (principal); E78.5 Hyperlipidemia, unspecified; I10 Essential (primary) hypertension; I25.10 Atherosclerotic heart disease of native coronary artery without angina pectoris; Z20.822 Contact with and (suspected) exposure to COVID-19; I48.0 Paroxysmal atrial fibrillation; I48.20 Chronic atrial fibrillation, unspecified; Z79.01 Long term (current) use of anticoagulants; Z79.82 Long term (current) use of aspirin; Z79.890 Hormone replacement therapy; Z79.899 Other long term (current) drug therapy
CPT/HCPCS: 96360; 96361 ×2; 99285; 36415; 93005; 80053; 80048; 84484; 85025 ×2; 85610 ×3; 85730; 81001; 87635; G0378 ×3

== ENCOUNTER → 2021-08-07 | Outpatient (CLI) | payer MEDICARE, BC ==
[2021-08-08 01:15] LABS: African American GFR (CKD) 50.6 (60.0-200.0); Anion Gap 10.5 mmol/L (4.00-12.00); BUN/Creat Ratio 18.89 Ratio (12.00-20.00); Blood Urea Nitrogen 22.1 mg/dL (9.0-27.0); Calcium 9.1 mg/dL (8.7-10.3); Carbon Dioxide 20.4 mmol/L (21.6-31.8); Non-African American GFR(CKD) 43.7 (60.0-200.0)
== END | disposition home or self-care (01) ==
LOC: LABWHC1 10:23
PROVIDERS: ATTEND Nurse Practitioner Adult Health
DX: I10 Essential (primary) hypertension (principal); I48.91 Unspecified atrial fibrillation
CPT/HCPCS: 36415; 80048; 82533; 83735; 84443; 84481

== ENCOUNTER → 2021-11-18 | Outpatient (CLI) | payer MEDICARE, BC ==
[2021-11-18 13:06] LABS: HCT 40.9 % (34.0-46.0); MCH 28.3 pg (25.0-35.0); MCHC 31.7 g/dL (31.0-37.0); MCV 89.3 fL (80.0-100.0); Mean Platelet Volume 7.7; Platelet Count 289 k/uL (150-450); RBC 4.58 m/uL (3.80-5.40); RDW 15.9 % (11.5-15.5); WBC 10.4 k/uL (3.8-10.6)
[2021-11-18 13:22] LABS: Potassium 4.1 mmol/L (3.5-5.1)
== END | disposition home or self-care (01) ==
LOC: LABWHC1 12:26
PROVIDERS: ATTEND Internal Medicine Clinical Cardiac Electrophysiology
DX: Z20.822 Contact with and (suspected) exposure to COVID-19 (principal); Z01.812 Encounter for preprocedural laboratory examination; I48.19 Other persistent atrial fibrillation
CPT/HCPCS: 80051; 82565; 84520; 85027; U0003; C9803

== ENCOUNTER 2021-11-19 10:02 | Day surgery (SDC) | payer MEDICARE, BC ==
[2021-11-17 13:59] VITALS: BMI 28.3
[~2021-11-19 10:02] MED LIST changes: -ALPRAZolam 0.25 MG TAB PO PRN; -ASPIRIN 325 MG TAB PO ONE; +LACTATED RINGERS 1,000 ML IV SCH; +SODIUM CHLORIDE 0.9% 1,000 ML IV SCH; -SODIUM CHLORIDE 0.9% 1,000 ML in EMPTY BAG 1 BAG IV ONE
[2021-11-19 10:39] VITALS: RESP 18; TEMP 97.1
[2021-11-19] MEDS ORDERED: PROPOFOL 10 MG/ML 20 ML VIAL IV ONE (11:00)
--- NOTE | 2021-11-19 11:16 | P.EPPROC ---
- EP Procedure Note Electrophysiology Procedure Note: Diagnosis Persistent atrial fibrillation, symptomatic On warfarin and therapeutic Underlying sick sinus syndrome Hypertension Dyslipidemia Electrical cardioversion for atrial fibrillation 200 J biphasic shock successfully converted patient to sinus rhythm Procedure performed under conscious sedation Immediately she went into a long run of atrial tachycardia and converted back to sinus rhythm Short bursts of atrial tachycardia Impression Successful electrocardioversion Immediate recurrence of nonsustained atrial tachycardia Consider PVI for maintenance of sinus rhythm Continue Coumadin Hypertension management In July 2021 On atorvastatin LDL is 88, triglycerides 149, total cholesterol 163 TSH 2.9, Creatinine is normal 0.95 She has underlying sick sinus syndrome Given the runs of atrial tachycardia, it is quite likely that she will go back into atrial fibrillation I would recommend PVI/Cryo ablation Avoid antiarrhythmic drug therapy in view for sick sinus syndrome
[2021-11-19 11:24] LABS: INR 2.9 (<1.2); Prothrombin Time 28.3 sec (9.0-12.0)
[2021-11-19 12:05] VITALS: BP 137/65; PULSE 66
== END 2021-11-19 12:22 | disposition home or self-care (01) ==
LOC: CATHEP 10:02
PROVIDERS: ATTEND Internal Medicine Clinical Cardiac Electrophysiology
DX: I48.19 Other persistent atrial fibrillation (principal); I49.5 Sick sinus syndrome; I10 Essential (primary) hypertension; E78.5 Hyperlipidemia, unspecified; Z20.822 Contact with and (suspected) exposure to COVID-19
CPT/HCPCS: 92960; 85610; 87635; J2704

== ENCOUNTER → 2021-12-19 | Outpatient (CLI) | payer MEDICARE, BC ==
[2021-12-19 18:18] LABS: HCT 38.3 % (37.2-46.3); HGB 11.9 g/dL (12.0-15.0); MCH 27.3 pg (27.0-32.0); MCHC 31.1 g/dL (32.0-37.0); MCV 87.8 fL (80.0-97.0); Mean Platelet Volume 10.7 fL (9.5-12.2); NRBC Per 100 WBC 0 /100 WBCS (0.0-0.0); Platelet Count 210 X 10*3/uL (140-440); RBC 4.36 X 10*6/uL (4.10-5.20); RDW 17.2 % (11.5-14.5); WBC 7.66 X 10*3/uL (4.50-10.00)
[2021-12-19 18:23] LABS: African American GFR (CKD) 67.2 (60.0-200.0); Anion Gap 11.4 mmol/L (10.00-18.00); Blood Urea Nitrogen 16.5 mg/dL (9.0-27.0); Carbon Dioxide 25.1 mmol/L (20.0-27.5); Non-African American GFR(CKD) 57.9 (60.0-200.0); Potassium 4.5 mmol/L (3.5-5.5)
[2021-12-20 12:16] LABS: Coronavirus SARS CoV-2 Not Detected (Not Detected)
== END | disposition home or self-care (01) ==
LOC: LABPAT 12:51
PROVIDERS: ATTEND Internal Medicine Clinical Cardiac Electrophysiology
DX: Z01.812 Encounter for preprocedural laboratory examination (principal); I48.19 Other persistent atrial fibrillation; Z20.822 Contact with and (suspected) exposure to COVID-19
CPT/HCPCS: 80051; 82565; 84520; 85027; 36415; U0003; C9803; U0005

== ENCOUNTER 2022-04-02 06:01 | Day surgery (SDC) | payer MEDICARE, BC ==
[2022-04-02] MEDS ORDERED: SODIUM CHLORIDE 0.9% 1,000 ML IV SCH (06:15)
[2022-04-02] MEDS ORDERED: LACTATED RINGERS 1,000 ML IV SCH (06:15)
[2022-04-02] MEDS ORDERED: SODIUM CHLORIDE 0.9% 500 ML 500 ML IV ONE (06:34)
[2022-04-02 06:43] VITALS: RESP 16; TEMP 98.1
[2022-04-02] MEDS ORDERED: PROPOFOL 10 MG/ML 20 ML VIAL IV ONE (07:20)
[2022-04-02] MEDS ORDERED: SODIUM CHLORIDE 0.9% 1,000 ML IV ONE (07:23)
[2022-04-02 07:35] LABS: INR 2.4 (<1.2); Prothrombin Time 23.9 sec (9.0-12.0)
--- NOTE | 2022-04-02 07:41 | P.HPCAR ---
History of Present Illness This is Dr. Huerta dictating an H/P on this patient The patient was interviewed and examined IMPRESSION / ASSESSMENT: Persistent atrial tachycardia/atrial fibrillation despite oral amiodarone Hypertension PLAN: Electrical cardioversion Following that watch for bradycardia Low-dose amiodarone thereafter Hypertension management HPI Patient remains in an atrial tachycardia with a resting heart rates close to 100 beats a minute She is undergone cryoablation of the pulmonary veins She recurrence of atrial fibrillation fairly soon after the ablation She is being treated with oral amiodarone for now She does underlying sick sinus syndrome History of hypertension The 24-hour monitor previously shoulder atrial tachycardia with a cycle length 240-280 ms For now she is being treated medically with low-dose amiodarone and today we'll proceed with electrical cardioversion and she remains in the rhythm despite oral amiodarone loading for about a month ROS: No fever chills or rigors, no cough, phlegm or expectoration, no nausea, vomiting or diarrhea, no hematuria, dysuria, no musculoskeletal complaints, no strokes or seizures, no skin lesions. EXAMINATION: Afebrile 98.1F pulse rate in 99 irregular normal respirations Lying comfortably in bed No orthopnea Blood pressure 185/96. Normal heart sounds irregular Lungs no rhonchi no crackles No lower extremity edema REVIEW OF LABS, ECG & MEDICAL DATA Atorvastatin 80 mg daily, aspirin 81 mg, Cozaar 25 mg twice daily Synthroid Coumadin 2.5 mg by mouth daily INR 2.4 Physical Exam Vitals: Vital Signs Temp Pulse Resp BP Pulse Ox 04/02/22 06:35 98.1 F 99 16 185/96 97 Intake and Output 04/01/22 04/02/22 04/02/22 22:59 06:59 14:59 Intake Total 50 150 Balance 50 150 Intake: IV 50 150 Other: Weight 73.2 kg Past Medical History Past Medical History: Atrial Fibrillation, Hyperlipidemia, Hypertension, Memory Impairment, Osteoarthritis (OA), Thyroid Disorder Additional Past Medical History / Comment(s): Per daughter "She gets confused easily." SEE DR HUERTA'S H & P History of Any Multi-Drug Resistant Organisms: None Reported Past Surgical History: Cardiac Ablation, Orthopedic Surgery Additional Past Surgical History / Comment(s): renetta. cataracts removed, ORIF left wrist, right carotid endarterectomy. Past Anesthesia/Blood Transfusion Reactions: No Reported Reaction Smoking Status: Never smoker - Past Family History Father Family Medical History: Myocardial Infarction ([place]) Additional Family Medical History / Comment(s): about 50yrs of age. Brother(s) Family Medical History: Myocardial Infarction ([place]) Mother Family Medical History: AICD/Pacemaker, Cancer Additional Family Medical History / Comment(s): Heart disease. Son(s) Family Medical History: Cancer Physical Examination Vital Signs Temp Pulse Resp BP Pulse Ox 04/02/22 06:35 98.1 F 99 16 185/96 97 Intake and Output 04/01/22 04/02/22 04/02/22 22:59 06:59 14:59 Intake Total 50 150 Balance 50 150 Intake: IV 50 150 Other: Weight 73.2 kg Results Coagulation 04/02/22 Range/Units 06:18 PT 23.9 H (9.0-12.0) sec Current Medications Generic Name Dose Route Start Last Admin Trade Name Freq PRN Reason Stop Dose Admin Lactated Ringer's 1,000 mls @ 20 mls/hr 04/02/22 06:15 Lactated Ringers IV 05/02/22 06:16 .Q24H SAV Sodium Chloride 1,000 mls @ 50 mls/hr 04/02/22 06:15 Saline 0.9% IV 05/02/22 06:16 .Q20H SAV Intake and Output 04/01/22 04/02/22 04/02/22 22:59 06:59 14:59 Intake Total 50 150 Balance 50 150 Intake: IV 50 150 Other: Weight 73.2 kg
[2022-04-02 07:42] LABS: ALT 15 U/L (4-34); AST 24 U/L (14-36); African American GFR (CKD) 54 (>60 ml/min/1.73 sqM); Albumin 3.9 g/dL (3.5-5.0); Alkaline Phosphatase 89 U/L (38-126); Anion Gap 6 mmol/L; Blood Urea Nitrogen 19 mg/dL (7-17); Carbon Dioxide 27 mmol/L (22-30); Chloride 106 mmol/L (98-107); Glucose 99 mg/dL (74-99); Non-African American GFR(CKD) 47 (>60 ml/min/1.73 sqM); Sodium 139 mmol/L (137-145); Total Protein 6.7 g/dL (6.3-8.2)
--- NOTE | 2022-04-02 07:43 | P.EPPROC ---
- EP Procedure Note Electrophysiology Procedure Note: Diagnosis Persistent atrial tachycardia despite oral amiodarone History of atrial fibrillation status post cryoablation of the pulmonary veins Procedure Under conscious sedation and electrical cardioversion 200 J was performed Delivered energy 260 J Impedance 96 ohms Sinus rhythm in the 50s with occasional PACs Plan Continue amiodarone 200 mg by mouth daily for one month Reduce the dose of amiodarone to 100 mg daily thereafter Follow TSH, follow for any significant bradycardia Follow-up with Dr. alejandra in 3-4 weeks
--- NOTE | 2022-04-02 07:45 | P.PRLE ---
RE: Artemio Villalba Dear Priscila But he underwent elective cardioversion on low-dose amiodarone She has a persistent atrial tachycardia following successful cryoablation of the pulmonary veins for atrial fibrillation I will reduce the dose of amiodarone to 100 mg by mouth daily after one month so If she has a recurrence on low-dose amiodarone then I would proceed with an atrial tachycardia ablation She has had A. fib ablation fairly recently in the last few months and therefore like to wait before proceeding with an atrial tachycardia ablation She will continue Coumadin and her antihypertensive regimen Sincerely Darryl Huerta
[2022-04-02 17:40] VITALS: BP 132/61; PULSE 59
== END 2022-04-02 09:21 | disposition home or self-care (01) ==
LOC: CATHEP 06:01
PROVIDERS: ATTEND Internal Medicine Clinical Cardiac Electrophysiology
DX: I47.1 Supraventricular tachycardia (principal); I48.91 Unspecified atrial fibrillation; E78.5 Hyperlipidemia, unspecified; I10 Essential (primary) hypertension; M19.90 Unspecified osteoarthritis, unspecified site; Z79.899 Other long term (current) drug therapy; Z82.49 Family history of ischemic heart disease and other diseases of the circulatory system; I49.5 Sick sinus syndrome; Z20.822 Contact with and (suspected) exposure to COVID-19
CPT/HCPCS: 92960; 80053; 84443; 85610; 87635; J2704

== ENCOUNTER → 2022-08-13 | Outpatient (CLI) | payer MEDICARE, BC ==
[2022-08-13 18:46] LABS: African American GFR (CKD) 47.8 (60.0-200.0); Blood Urea Nitrogen 15.5 mg/dL (9.0-27.0); Carbon Dioxide 26.7 mmol/L (20.0-27.5); Non-African American GFR(CKD) 41.2 (60.0-200.0); Potassium 4.2 mmol/L (3.5-5.5)
[2022-08-13 19:48] LABS: HCT 37.1 % (37.2-46.3); HGB 11.8 g/dL (12.0-15.0); MCH 29.3 pg (27.0-32.0); MCHC 31.8 g/dL (32.0-37.0); MCV 92.1 fL (80.0-97.0); Mean Platelet Volume 11.3 fL (9.5-12.2); NRBC Per 100 WBC 0 /100 WBCS (0.0-0.0); Platelet Count 178 X 10*3/uL (140-440); RBC 4.03 X 10*6/uL (4.10-5.20); RDW 16.8 % (11.5-14.5); WBC 6.17 X 10*3/uL (4.50-10.00)
== END | disposition home or self-care (01) ==
LOC: LABPAT 11:22
PROVIDERS: ATTEND Internal Medicine Clinical Cardiac Electrophysiology
DX: Z01.812 Encounter for preprocedural laboratory examination (principal); I49.5 Sick sinus syndrome; I25.10 Atherosclerotic heart disease of native coronary artery without angina pectoris; I48.0 Paroxysmal atrial fibrillation
CPT/HCPCS: 80051; 82565; 84520; 85027

== ENCOUNTER → 2023-02-16 | Day surgery (SDC) | payer MEDICARE, BC ==
[2023-02-12 17:16] VITALS: BMI 29.2
[~2023-02-16] MED LIST changes: +IOPAMIDOL-370 100ML BTL INJ ONE; -LACTATED RINGERS 1,000 ML IV SCH; +SODIUM CHLORIDE 0.9% 500 ML 500 ML IV ONE
[2023-02-16 07:37] VITALS: RESP 16; TEMP 98.4
[2023-02-16 07:59] LABS: INR 1.3 (<1.2); Prothrombin Time 13.6 sec (9.0-12.0)
--- NOTE | 2023-02-16 09:31 | P.EPPROC ---
- EP Procedure Note Electrophysiology Procedure Note: Diagnosis Sick Sinus Syndrome Atrial fibrillation, persistent Status post dual-chamber pacemaker implantation, [facility] several months back Elevated RV thresholds after patient took a fall Pacemaker interrogation Patient was in atrial fibrillation. 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
[2023-02-16 09:33] VITALS: BP 145/78; PULSE 86
== END | disposition home or self-care (01) ==
LOC: CATHEP 07:10
PROVIDERS: ATTEND Internal Medicine Clinical Cardiac Electrophysiology
DX: T82.199A Other mechanical complication of unspecified cardiac device, initial encounter (principal); Y83.1 Surgical operation with implant of artificial internal device as the cause of abnormal reaction of the patient, or of later complication, without mention of misadventure at the time of the procedure; I49.5 Sick sinus syndrome; I48.19 Other persistent atrial fibrillation; Z95.0 Presence of cardiac pacemaker; I10 Essential (primary) hypertension; Z79.01 Long term (current) use of anticoagulants; Z79.899 Other long term (current) drug therapy; Z79.1 Long term (current) use of non-steroidal anti-inflammatories (NSAID); Z79.82 Long term (current) use of aspirin
CPT/HCPCS: 36005; 75820; 93288; 85610; Q9967